=== PATIENT | male | born 1995 | race Two or more races ===

== ENCOUNTER 2018-09-23 14:27 | Emergency (ER) | payer MEDICAID ==
[~2018-09-23] VITALS: Ht 175.3 cm; Wt 84.4 kg
--- NOTE | 2018-09-23 14:38 | NUR ---
ED Nurse Note: Pt came in due to RLQ abd pain, non radiating with nausea. Pt states he was admitted in [facility] [place] 2 days ago and sigend AMA for dx of pancreatitis. Pt is AAO x4,ambulates with non labored breathing. Moaning and restless with pain. Father at the bed side.
[2018-09-23] MEDS ORDERED: OMEPRAZOLE40 M1 ORAL (14:43)
--- NOTE | 2018-09-23 14:50 | NUR ---
ED Nurse Note: Dr Mccloud at the bed side for assessment.
[2018-09-23] MEDS ORDERED: Morphine Sulfate 4mg/ml Inj (IV/IM USE ONLY) IVP ONE (15:00)
[2018-09-23] MEDS ORDERED: Ketorolac 30mg Inj IV ONE (15:00)
--- NOTE | 2018-09-23 15:15 | NUR ---
ED Nurse Note: Blood collected and sent.
[2018-09-23 15:30] LABS: BASOPHILS % (AUTO) 0.8 % (0.0-2.0); EOSINOPHILS % (AUTO) 0.2 % (0.0-3.0); HEMATOCRIT 42.5 % (42.0-52.0); HEMOGLOBIN 14.1 G/DL (14.2-18.0); MEAN CORPUSCULAR VOLUME 89 FL (80-99); MONOCYTES % (AUTO) 8.7 % (1.0-10.0); NEUTROPHILS % (AUTO) 83.4 % (45.0-75.0); PLATELET COUNT 272 K/UL (150-450); RED BLOOD COUNT 4.79 M/UL (4.70-6.10); RED CELL DISTRIBUTION WIDTH 12.5 % (11.6-14.8); WHITE BLOOD COUNT 12.8 K/UL (4.8-10.8)
[2018-09-23 15:52] LABS: ANION GAP 8 mmol/L (5-15); BLOOD UREA NITROGEN 12 mg/dL (7-18); CALCIUM 9.5 MG/DL (8.5-10.1); CARBON DIOXIDE 27 MMOL/L (21-32); CHLORIDE 104 MMOL/L (98-107); CREATININE 0.8 MG/DL (0.55-1.30); POTASSIUM 3.6 MMOL/L (3.5-5.1); SODIUM 139 MMOL/L (136-145)
[2018-09-23 15:57] VITALS: BP 116/64
[2018-09-23 16:03] LABS: ALANINE AMINOTRANSFERASE 148 U/L (12-78); ALBUMIN/GLOBULIN RATIO 0.9 (1.0-2.7); ALKALINE PHOSPHATASE 90 U/L (46-116); ASPARTATE AMINO TRANSFERASE 18 U/L (15-37); BILIRUBIN,DIRECT 0.3 MG/DL (0.0-0.3); BILIRUBIN,TOTAL 1.2 MG/DL (0.2-1.0)
[2018-09-23] MEDS ORDERED: ONDANSETRON ODT4 MG BC (16:37)
[2018-09-23] MEDS ORDERED: RANITIDINE HCL150 MG ORAL (16:37)
[2018-09-23] MEDS ORDERED: ACETAMINOPHEN-1 EAC1 ORAL (16:37)
[2018-09-23 16:58] VITALS: BP 111/64
--- NOTE | 2018-09-23 17:02 | NUR ---
ED Nurse Note: Pt cleared by ER MD for discharge. ACI/prescription was given and explained to pt and verbalized understanding of teachings. All medical devices such as ID band/IV removed. Pt is AAO x4, ambulatory with steady gait and left with all belongings.
--- NOTE | 2018-09-23 17:15 | Emergency Room Report ---
History of Present Illness General Chief Complaint: Abdominal Pain Source: Patient Present Illness HPI 23-year-old male presents ED for evaluation. Patient complaining of abdominal pain and vomiting. Pain is epigastric, throbbing, 7 out of 10, nonradiating. States that he went to another hospital and was told that he has pancreatitis. He was admitted. States that he left AMA 2 days ago because no doctor saw him. States pain is persisting. States he taking omeprazole prescribed by clinic yesterday but states it is not helping. Denies alcohol use. Denies drug use. Denies fevers or chills. No other aggravating relieving factors. Denies any other associated symptoms Allergies: Coded Allergies: No Known Allergies (Unverified , 09/23/18) Patient History Past Medical History: other - pancreatitis Past Surgical History: none Pertinent Family History: none Social History: Denies: smoking, alcohol use, drug use Immunizations: UTD Reviewed Nursing Documentation: PMH: Agreed; PSxH: Agreed Nursing Documentation-PMH Past Medical History: No History, Except For Hx Gastrointestinal Problems: Yes - pancreatitis Review of Systems All Other Systems: negative except mentioned in HPI Physical Exam Vital Signs Date Time Temp Pulse Resp B/P (MAP) Pulse Ox O2 Delivery O2 Flow Rate FiO2 09/23/18 14:38 72 18 Room Air 09/23/18 14:38 98.6 120/76 99 Sp02 EP Interpretation: reviewed, normal General Appearance: no apparent distress, alert, GCS 15, non-toxic Head: normocephalic, atraumatic Eyes: bilateral eye normal inspection, bilateral eye PERRL ENT: hearing grossly normal, normal pharynx, no angioedema, normal voice Neck: full range of motion, supple/symm/no masses Respiratory: chest non-tender, lungs clear, normal breath sounds, speaking full sentences Cardiovascular #1: regular rate, rhythm, no edema Cardiovascular #2: 2+ carotid (R), 2+ carotid (L), 2+ radial (R), 2+ radial (L) , 2+ dorsalis pedis (R), 2+ dorsalis pedis (L) Gastrointestinal: normal bowel sounds, soft, non-distended, no guarding, no rebound, tenderness Rectal: deferred Genitourinary: normal inspection, no CVA tenderness Musculoskeletal: back normal, gait/station normal, normal range of motion, non- tender Neurologic: alert, oriented x3, responsive, motor strength/tone normal, sensory intact, speech normal Psychiatric: judgement/insight normal, memory normal, mood/affect normal, no suicidal/homicidal ideation Reflexes: 3+ bicep (R), 3+ bicep (L), 3+ tricep (R), 3+ tricep (L), 3+ knee (R) , 3+ knee (L) Skin: normal color, no rash, warm/dry, well hydrated Lymphatic: no adenopathy Medical Decision Making Diagnostic Impression: Primary Impression: Abdominal pain Qualified Codes: R10.13 - Epigastric pain ER Course Hospital Course 23-year-old M presents to ED with epigastric pain with nausea. recently diagnosed with pancreatitis differential diagnosis: gastritis, pancreatitis, cholecystits Clinical course Patient placed on stretcher. On classroom monitor. After initial history and physical I ordered labs, IV fluids, toradol and Zantac Labs - no leukocytosis, no electrolyte abnormalities, LFTs normal, lipase within normal limits discussed findings with patient. Lipase within normal limits. Abdomen soft. Tolerating by mouth intake. Patient will be discharged to home. Patient does not have a PMD. We'll provide referrals I feel this is a highly complex case requiring extensive working including EKG/ Rhythm strip, Xray/CT/US, Blood/urine lab work, repeat exams while in ED, and administration of strong opiates/narcotics for pain control, admission to hospital or close patient follow up. Diagnosis - abdominal pain Stable and discharged to home with prescriptions for Zantac, zofran, tylenol # 3. Followup with PMD. Return to ED if symptoms recur or worsen Labs Test 09/23/18 15:05 White Blood Count 12.8 K/UL (4.8-10.8) Red Blood Count 4.79 M/UL (4.70-6.10) Hemoglobin 14.1 G/DL (14.2-18.0) Hematocrit 42.5 % (42.0-52.0) Mean Corpuscular Volume 89 FL (80-99) Mean Corpuscular Hemoglobin 29.3 PG (27.0-31.0) Mean Corpuscular Hemoglobin Concent 33.0 G/DL (32.0-36.0) Red Cell Distribution Width 12.5 % (11.6-14.8) Platelet Count 272 K/UL (150-450) Mean Platelet Volume 6.5 FL (6.5-10.1) Neutrophils (%) (Auto) 83.4 % (45.0-75.0) Lymphocytes (%) (Auto) 7.0 % (20.0-45.0) Monocytes (%) (Auto) 8.7 % (1.0-10.0) Eosinophils (%) (Auto) 0.2 % (0.0-3.0) Basophils (%) (Auto) 0.8 % (0.0-2.0) Sodium Level 139 MMOL/L (136-145) Potassium Level 3.6 MMOL/L (3.5-5.1) Chloride Level 104 MMOL/L (98-107) Carbon Dioxide Level 27 MMOL/L (21-32) Anion Gap 8 mmol/L (5-15) Blood Urea Nitrogen 12 mg/dL (7-18) Creatinine 0.8 MG/DL (0.55-1.30) Estimat Glomerular Filtration Rate > 60 mL/min (>60) Glucose Level 127 MG/DL (74-106) Calcium Level 9.5 MG/DL (8.5-10.1) Total Bilirubin 1.2 MG/DL (0.2-1.0) Direct Bilirubin 0.3 MG/DL (0.0-0.3) Aspartate Amino Transf (AST/SGOT) 18 U/L (15-37) Alanine Aminotransferase (ALT/SGPT) 148 U/L (12-78) Alkaline Phosphatase 90 U/L (46-116) Total Protein 8.5 G/DL (6.4-8.2) Albumin 4.0 G/DL (3.4-5.0) Globulin 4.5 g/dL Albumin/Globulin Ratio 0.9 (1.0-2.7) Lipase 235 U/L (73-393) Last Vital Signs Date Time Temp Pulse Resp B/P (MAP) Pulse Ox O2 Delivery O2 Flow Rate FiO2 09/23/18 16:58 98.0 88 20 111/ 100 Room Air Status: improved Disposition: HOME, SELF-CARE Condition: Stable Scripts Ondansetron Odt* (ZOFRAN ODT*) 4 Mg Tab.rapdis 4 MG BC EVERY 6 HOURS PRN for Nausea & Vomiting, #10 TAB 0 Refills Prov: K[place]akota,Chevy MD 09/23/18 Acetaminophen With Codeine (T#3) (TYLENOL #3 TAB*) Y Tab 1 TAB ORAL Q8H PRN for For Pain for 3 Days, TAB Prov: Chevy Mccloud MD 09/23/18 Ranitidine Hcl* (ZANTAC*) 150 Mg Tablet 150 MG ORAL TWICE A DAY, #30 TAB Prov: Chevy Mccloud MD 09/23/18 [facility]IC[facility] Instructions: Acute Pancreatitis, [id number] Chevy Mccloud MD Sep 23, 2018 17:15
== END 2018-09-23 16:58 | disposition home or self-care (01) ==
LOC: EMR 15:01
DX: R10.13 Epigastric pain (principal); R11.0 Nausea
CPT/HCPCS: 36415; 80053; 82248; 83690; 85025; 96361; 96374; 96375; 99284; J1885; J2270; J2405; S0028

== ENCOUNTER 2018-09-27 12:55 | Inpatient (IN) | payer MEDICAID ==
[~2018-09-27] VITALS: Ht 172.7 cm; Wt 83.9 kg
[~2018-09-27 12:55] MED LIST: ACETAMINOPHEN-1 EAC1 ORAL; OMEPRAZOLE40 M1 ORAL; ONDANSETRON ODT4 MG BC; RANITIDINE HCL150 MG ORAL
[2018-09-27 13:08] VITALS: BP 122/78
[2018-09-27] MEDS ORDERED: Isovue-300 100ml vial INJ PRN (14:00)
[2018-09-27] MEDS ORDERED: Ketorolac 30mg Inj IV ONE (14:00)
[2018-09-27 15:00] VITALS: BP 133/75
[2018-09-27 15:06] LABS: APPEARANCE,URINE CLEAR; BILIRUBIN, URINE NEGATIVE (NEGATIVE); GLUCOSE, URINE (UA) NEGATIVE (NEGATIVE); KETONES,URINE NEGATIVE (NEGATIVE); LEUKOCYTE ESTERASE ,URINE 1+ (NEGATIVE); NITRITE,URINE NEGATIVE (NEGATIVE); PH,URINE 6.5 (4.5-8.0); PROTEIN,URINE 1+ (NEGATIVE); UROBILINOGEN,URINE 1 MG/DL (0.0-1.0)
[2018-09-27 15:06] LABS: ANION GAP 9 mmol/L (5-15); BLOOD UREA NITROGEN 11 mg/dL (7-18); CALCIUM 9.7 MG/DL (8.5-10.1); CARBON DIOXIDE 28 MMOL/L (21-32); CHLORIDE 101 MMOL/L (98-107); CREATININE 0.8 MG/DL (0.55-1.30); POTASSIUM 4.5 MMOL/L (3.5-5.1); SODIUM 138 MMOL/L (136-145)
[2018-09-27 15:08] LABS: COLOR,URINE YELLOW
[2018-09-27 15:10] LABS: ALANINE AMINOTRANSFERASE 60 U/L (12-78); ALBUMIN 3.4 G/DL (3.4-5.0); ALBUMIN/GLOBULIN RATIO 0.7 (1.0-2.7); ALKALINE PHOSPHATASE 129 U/L (46-116); ASPARTATE AMINO TRANSFERASE 17 U/L (15-37); BASOPHILS % (AUTO) 1.2 % (0.0-2.0); BILIRUBIN,TOTAL 0.7 MG/DL (0.2-1.0); EOSINOPHILS % (AUTO) 1.3 % (0.0-3.0); HEMATOCRIT 41.4 % (42.0-52.0); HEMOGLOBIN 13.6 G/DL (14.2-18.0); MEAN CORPUSCULAR VOLUME 89 FL (80-99); NEUTROPHILS % (AUTO) 74.4 % (45.0-75.0); PLATELET COUNT 373 K/UL (150-450); RED BLOOD COUNT 4.65 M/UL (4.70-6.10); RED CELL DISTRIBUTION WIDTH 12.5 % (11.6-14.8); WHITE BLOOD COUNT 10.5 K/UL (4.8-10.8)
[2018-09-27] MEDS ORDERED: Fluconazole 100mg tab ORAL ONE (15:30)
--- NOTE | 2018-09-27 15:33 | Emergency Room Report ---
History of Present Illness General Chief Complaint: Abdominal Pain Source: Patient Present Illness HPI 23-year-old male patient presents the ER complaining of right lower quadrant pain for the past 2 weeks. Patient reports that he was previously seen here at [facility] and had labs done at that time, states that he was provided with medication that he has since completed. Reports prior to that visit he was seen at another ER and told he had a pancreatitis, labs [place] [facility]. Reports diarrhea during this time, denies blood in diarrhea. Denies recent travel. Denies vomiting. Reports has not passed stool since yesterday, reports able to pass flatus. Reports pain symptoms increase in his right lower quadrant whenever he has a bowel movement or urinates. Also reports pain when he coughs. Denies fever, chest pain, shortness of breath. Denies hematuria, penile discharge. Denies rash. Denies testicular pain or swelling. Allergies: Coded Allergies: No Known Allergies (Unverified , 09/23/18) Patient History Past Medical History: see triage record Reviewed Nursing Documentation: PMH: Agreed; PSxH: Agreed Nursing Documentation-PMH Past Medical History: No History, Except For Hx Gastrointestinal Problems: Yes - pancreatitis Review of Systems All Other Systems: negative except mentioned in HPI Physical Exam Vital Signs Date Time Temp Pulse Resp B/P (MAP) Pulse Ox O2 Delivery O2 Flow Rate FiO2 09/27/18 13:08 98.4 90 16 122/78 97 Room Air Sp02 EP Interpretation: reviewed, normal General Appearance: well appearing, no apparent distress, alert, GCS 15, non- toxic Head: normocephalic, atraumatic Eyes: bilateral eye normal inspection, bilateral eye PERRL ENT: hearing grossly normal, normal pharynx, no angioedema, normal voice, uvula midline, moist mucus membranes Neck: full range of motion Respiratory: lungs clear, normal breath sounds, no rhonchi, no respiratory distress, no accessory muscle use, no wheezing, speaking full sentences Cardiovascular #1: regular rate, rhythm, no edema Gastrointestinal: soft, no mass, non-distended, no guarding, no rebound, tenderness - Right lower quadrant, other - no hernia, positive right heel strike Genitourinary: no CVA tenderness Musculoskeletal: back normal, digits/nails normal, gait/station normal, normal range of motion, non-tender Neurologic: alert, oriented x3, responsive, motor strength/tone normal, sensory intact Psychiatric: mood/affect normal Skin: no rash Medical Decision Making PA Attestation Dr. Schneider is my supervising Physician whom patient management has been discussed with. Diagnostic Impression: Primary Impression: Appendicitis Additional Impressions: Urinary tract infection Yeast infection ER Course Pt. presents to the ED c/o abdominal pain. Ddx considered but are not limited to UTI, pancreatitis, appendicitis, constipation, pancreatitis, hernia. Begin abdominal pain workup. Provided patient with pain medication. Vital signs: are WNL, pt. is afebrile ORDERS: CBC, CMP, Lipase, UA, CT abdomen pelvis, Zofran, Pepcid and medication. ER COURSE: Provided with pain medicaiton. CBC and CMP unremarkable, no elevation in WBCs or LFTs Lipase WNL, low suspicion for appendicitis UA moderate bacteria with no epithelial cells, likely infection, will treat with antibiotics. Also yeast noted, will provide patient with fluconazole in the ER. Discuss results with patient CT abdomen and pelvis shows acute appendicitis with evidence of focal rupture. Provide patient with Zosyn. Will admit patient for acute appendicitis. Possible pancreatitis noted however lipase within normal limits, low suspicion for acute pancreatitis. Patient reports relief of pain symptoms with medication. Discussed patient care with Dr. Shipman, patient will be admitted for acute appendicitis. Patient seen and evaluated by general surgeon Dr. Trinidad who was kind enough to consult on this case. Patient to be admitted to Dr. Lovell. - Please note that this Emergency Department Report was dictated using [employer] critical care technology software, occasionally this can lead to erroneous entry secondary to interpretation by the dictation equipment. Labs Test 09/27/18 14:40 09/27/18 14:45 Urine Color Yellow Urine Appearance Clear Urine pH 6.5 (4.5-8.0) Urine Specific [place] 1.015 (1.005-1.035) Urine Protein 1+ (NEGATIVE) Urine Glucose (UA) Negative (NEGATIVE) Urine Ketones Negative (NEGATIVE) Urine Blood 2+ (NEGATIVE) Urine Nitrite Negative (NEGATIVE) Urine Bilirubin Negative (NEGATIVE) Urine Urobilinogen 1 MG/DL (0.0-1.0) Urine Leukocyte Esterase 1+ (NEGATIVE) Urine RBC 5-10 /HPF (0 - 0) Urine WBC 2-4 /HPF (0 - 0) Urine Squamous Epithelial Cells None /LPF (NONE/OCC) Urine Bacteria Moderate /HPF (NONE) Urine Yeast Few /HPF (NONE) White Blood Count 10.5 K/UL (4.8-10.8) Red Blood Count 4.65 M/UL (4.70-6.10) Hemoglobin 13.6 G/DL (14.2-18.0) Hematocrit 41.4 % (42.0-52.0) Mean Corpuscular Volume 89 FL (80-99) Mean Corpuscular Hemoglobin 29.3 PG (27.0-31.0) Mean Corpuscular Hemoglobin Concent 32.9 G/DL (32.0-36.0) Red Cell Distribution Width 12.5 % (11.6-14.8) Platelet Count 373 K/UL (150-450) Mean Platelet Volume 5.7 FL (6.5-10.1) Neutrophils (%) (Auto) 74.4 % (45.0-75.0) Lymphocytes (%) (Auto) 12.0 % (20.0-45.0) Monocytes (%) (Auto) 11.0 % (1.0-10.0) Eosinophils (%) (Auto) 1.3 % (0.0-3.0) Basophils (%) (Auto) 1.2 % (0.0-2.0) Sodium Level 138 MMOL/L (136-145) Potassium Level 4.5 MMOL/L (3.5-5.1) Chloride Level 101 MMOL/L (98-107) Carbon Dioxide Level 28 MMOL/L (21-32) Anion Gap 9 mmol/L (5-15) Blood Urea Nitrogen 11 mg/dL (7-18) Creatinine 0.8 MG/DL (0.55-1.30) Estimat Glomerular Filtration Rate > 60 mL/min (>60) Glucose Level 100 MG/DL (74-106) Calcium Level 9.7 MG/DL (8.5-10.1) Total Bilirubin 0.7 MG/DL (0.2-1.0) Aspartate Amino Transf (AST/SGOT) 17 U/L (15-37) Alanine Aminotransferase (ALT/SGPT) 60 U/L (12-78) Alkaline Phosphatase 129 U/L (46-116) Total Protein 8.5 G/DL (6.4-8.2) Albumin 3.4 G/DL (3.4-5.0) Globulin 5.1 g/dL Albumin/Globulin Ratio 0.7 (1.0-2.7) Lipase 253 U/L (73-393) CT/MRI/US Diagnostic Results CT/MRI/US Diagnostic Results : Imaging Test Ordered: CT abdomen pelvis Impression Acute appendicitis with evidence of focal rupture. Moderate inflammation and phlegmon noted. No definite abscess at this time. Associated terminal ileum stasis and fecalization. Query possibility of focal mild acute pancreatitis in the anterior body of the pancreas. Correlate with lipase. Last Vital Signs Date Time Temp Pulse Resp B/P (MAP) Pulse Ox O2 Delivery O2 Flow Rate FiO2 09/27/18 14:15 90 16 Room Air 09/27/18 13:08 98.4 122/78 97 Disposition: ADMITTED INPATIENT Condition: Serious Referrals: NON PHYSICIAN (PCP) Patient Instructions: Abdominal Pain, Adult, Genital Yeast Infection, Male, Urinary Tract Infection, [id number] Zak Martinez Sep 27, 2018 15:33
--- NOTE | 2018-09-27 16:38 | Diagnostic Imaging Report ---
Indication: Abdominal pain Technique: Continuous helical transaxial imaging of the abdomen and pelvis was obtained from the lung bases to the pubic symphysis during intravenous contrast administration. Coronal 2-D reformats were also obtained. Study obtained in a Siemens sensation [address] Automatic Exposure Control was utilized. Total Dose length Product (DLP): 857.[address] Dose Index Volume (CTDIvol): 15.47 mGy Comparison: None Findings: There is a moderately severe inflammation in the right lower quadrant associated with a dilated appendix measuring about 12 mm. Single focus of air noted adjacent to the appendix indicative of focal rupture. No abscess identified. Mild dilatation of the terminal ileum filled with feces noted. Kidneys are unremarkable. The liver, spleen and gallbladder appear unremarkable. In the anterior body of the pancreas there is an area of low attenuation (for example images 22-26 series 3). Query mild, focal pancreatitis. Moderate stool in the rectal vault noted. IMPRESSION: Acute appendicitis with evidence of focal rupture. Moderate inflammation and phlegmon noted. No definite abscess at this time. Associated terminal ileum stasis and fecalization. Query possibility of focal mild acute pancreatitis in the anterior body of the pancreas. Correlate with lipase. The CT scanner at [facility] is accredited by the [employer] and the scans are performed using dose optimization techniques as appropriate to a performed exam including Automatic Exposure control.
[2018-09-27 17:00] VITALS: BP 129/88
[2018-09-27] MEDS ORDERED: cefTRIAXone 1 GM in NS 55 ML IVPB ONE (17:00)
[2018-09-27] MEDS ORDERED: Piperacillin/Tazobactam 3.375 GM in NS 110 ML IVPB ONE (17:00)
[2018-09-27] MEDS ORDERED: Bupivacaine w/Epi 0.5% 30ml Vial INJ ONE (18:46)
[2018-09-27] MEDS ORDERED: Bacitracin 50000 Units Vial ONE (18:46)
[2018-09-27 19:00] VITALS: BP 130/77
--- NOTE | 2018-09-27 19:13 | Pre-Procedure Note/Attestation ---
Pre-Procedure Note/Attestation Complete Prior to Procedure Planned Procedure: not applicable Procedure Narrative: laparoscopic appendectomy possible open appendectomy Indications for Procedure Pre-Operative Diagnosis: Acute appendicitis Attestation I attest that I discussed the nature of the procedure; its benefits; risks and complications; and alternatives (and the risks and benefits of such alternatives ), prior to the procedure, with the patient (or the patient's legal printing sales representative). I attest that, if there was a reasonable possibility of needing a blood transfusion, the patient (or the patient's legal printing sales representative) was given the [facility] standardized written summary, pursuant to the Michele Rosendo Blood Safety Act ([place] Health and Safety Code # 1645, as amended). I attest that I re-evaluated the patient just prior to the surgery and that there has been no change in the patient's H&P, except as documented below: Gurmeet Trinidad MD Sep 27, 2018 19:13
[2018-09-27] MEDS ORDERED: Hydromorphone 0.5mg/0.5ml inj IVP PRN (19:45)
[2018-09-27] MEDS ORDERED: Metoclopramide 10mg/2ml Inj IVP PRN (19:45)
[2018-09-27] MEDS ORDERED: Acetaminophen 650 MG SUPP RECTAL PRN (19:45)
--- NOTE | 2018-09-27 19:45 | Pre-op HX & Phy Repo 2 SIG ---
DATE OF ADMISSION: 09/27/2018 REASON FOR CONSULTATION: Abdominal pain. REQUESTING PHYSICIAN: Dr. Shipman in the emergency room. HISTORY OF PRESENT ILLNESS: This is a 23-year-old, male, who presented to emergency room complaining of abdominal pain for about a week. He stated that the pain is located at the left lower quadrant. No radiation. Before, he had two episodes of vomiting, but now he denies any nausea or vomiting. He had a loose bowel movement yesterday. He denies any fever, cough, dysuria, or frequency. He stated that a week ago, he was admitted in another hospital with diagnosis of pancreatitis, but after 2 days as he was not getting any treatment, he signed AMA. PAST MEDICAL HISTORY: He denies allergies, asthma, diabetes, hypertension, cardiac, and renal diseases. PAST SURGICAL HISTORY: None. MEDICATIONS: Currently, he is on Zantac and omeprazole as well as Tylenol No. 3. SOCIAL HISTORY: The patient is a 23-year-old male, who is single, no children. 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 REVIEW OF SYSTEMS: Noncontributory. PHYSICAL EXAMINATION: GENERAL: The patient appeared to be a well-developed and well-nourished 23-year-old male, lying on the gurney, complaining of abdominal pain. HEENT: Head is normocephalic and atraumatic. Eyes, pupils are equal, round, and reactive to light. Mouth is clear. NECK: There is no palpable thyromegaly or adenopathy. CHEST: Clear to auscultation and percussion. HEART: There is no gallop or murmur. S1 and S2 are within normal limits. ABDOMEN: Soft and flat with tenderness at right lower quadrant with guarding, but no rebound tenderness. Bowel sounds are present. GENITAL: Normal. EXTREMITIES: Within normal limits. LABORATORY DATA: CBC has shown a WBC of 10,500 with normal differential. Chemistry is within normal limits. UA is within normal limits except that it shows 5 to 10 red blood cells and 2 to 4 white blood cells. A CAT scan of the abdomen has been interpreted as acute appendicitis with evidence of the focal rupture. It has shown an air bubble next to the appendix with severe inflammatory changes. ASSESSMENT: Acute appendicitis. PLAN: After rehydration, the patient will undergo a laparoscopy appendectomy, possible open appendectomy. The risks and benefits have been explained to him. He understood and granted consent. Gurmeet Trinidad M.D. DR: OSIEL JOB#: [id number] CC:
[2018-09-27 20:00] VITALS: BP 121/68
[2018-09-27] MEDS: D5 1/2NS w/KCl 20mEq 1,000 ML IV SCH (21:57)
[2018-09-28] VITALS (10 sets, daily range): BP systolic 104–134; BP diastolic 55–75
[2018-09-28] MEDS: HYDROmorphone 1mg/ml Carpuject IVP PRN ×4 (00:51→21:30)
[2018-09-28] MEDS ORDERED: Bupivacaine 0.25% Inj 30ml INJ ONE (06:54)
[2018-09-28] MEDS ORDERED: Bacitracin 50000 Units Vial ONE (06:54)
[2018-09-28] MEDS ORDERED: Bupivacaine w/Epi 0.5% 30ml Vial INJ ONE (06:54)
[2018-09-28] MEDS: D5 1/2NS w/KCl 20mEq 1,000 ML IV SCH ×2 (07:00→13:21)
[2018-09-28] MEDS ORDERED: Zemuron 50mg/5ml Inj IV ONE (07:03)
[2018-09-28] MEDS ORDERED: Propofol 200mg/20ml IV ONE (07:06)
[2018-09-28] MEDS ORDERED: Lidocaine 1% MPF 10mg/ml 5ml ONE (07:06)
[2018-09-28] MEDS ORDERED: fentaNYL 100 mcg/2 mL IV ONE (07:06)
[2018-09-28] MEDS ORDERED: Ketorolac 30mg Inj ONE (08:20)
[2018-09-28] MEDS ORDERED: Neostigmine 1mg/ml 10ml Inj ONE (08:20)
[2018-09-28] MEDS ORDERED: Glycopyrrolate 0.2mg/ml 1ml Vial ONE (08:20)
[2018-09-28] MEDS ORDERED: Morphine Sulfate 10mg/ml Inj ONE (08:23)
[2018-09-28] MEDS ORDERED: D5 1/2NS w/KCl 20mEq 1,000 ML IV SCH (08:29)
--- NOTE | 2018-09-28 08:29 | Brief Operative Note ---
Immediate Post Operative Note Operative Note Pre-op Diagnosis: Acute appendicitis Procedure: Laparoscopic Appendectomy and partial omentectomy Post-op Diagnosis: acute perforated appendicitis with abscess Findings: consistent w/pre-op dx studies Surgeon: MD David Brand Manager: none Anesthesiologist: Dr Pedraza Anesthesia: general Specimen: yes Complications: none Condition: stable Fluids: per anesthesialogist Estimated Blood Loss: volume - 20 ml Drains: none Implant(s) used?: No Gurmeet Trinidad MD Sep 28, 2018 08:29
[2018-09-28] MEDS ORDERED: HYDROmorphone 1mg/ml Carpuject IVP PRN (08:30)
[2018-09-28] MEDS ORDERED: Metoclopramide 10mg/2ml Inj IVP PRN (08:30)
[2018-09-28] MEDS ORDERED: Hydromorphone 0.5mg/0.5ml inj IVP PRN (08:30)
[2018-09-28] MEDS ORDERED: Acetaminophen 650 MG SUPP RECTAL PRN (08:30)
--- NOTE | 2018-09-28 08:39 | Immediate Post-Op Evaluation ---
Immediate Post-Op Evalulation Immediate Post-Op Evalulation Procedure: lap chan Date of Evaluation: Sep 28, 2018 Time of Evaluation: 08:39 Nausea: No Vomiting: No America Pedraza MD Sep 28, 2018 08:39
--- NOTE | 2018-09-28 08:39 | Anethesia Preoperative Eval ---
Anesthesia Pre-op PMH/ROS General Date of Evaluation: Sep 28, 2018 Time of Evaluation: 07:00 ASA Score: ASA 1 Mallampati Score Class I : Soft palate, uvula, fauces, pillars visible Class II: Soft palate, uvula, fauces visible Class III: Soft palate, base of uvula visible Class IV: Only hard plate visible Mallampati Classification: Class I Allergies: Coded Allergies: No Known Allergies (Unverified , 09/23/18) Patient NPO?: Yes NPO Date: Sep 27, 2018 NPO Time: 1900 Anesthesia Pre-op Phys. Exam Physician Exam Last Vital Signs Date Time Temp Pulse Resp B/P (MAP) Pulse Ox O2 Delivery O2 Flow Rate FiO2 09/28/18 00:00 97.9 69 16 120/69 (86) 97 09/27/18 21:53 Room Air Airway Exam Mallampati Score: Class I Anesthesia Pre-op A/P Labs Hematology Test 09/27/18 14:45 White Blood Count 10.5 K/UL (4.8-10.8) Red Blood Count 4.65 M/UL (4.70-6.10) L Hemoglobin 13.6 G/DL (14.2-18.0) L Hematocrit 41.4 % (42.0-52.0) L Mean Corpuscular Volume 89 FL (80-99) Mean Corpuscular Hemoglobin 29.3 PG (27.0-31.0) Mean Corpuscular Hemoglobin Concent 32.9 G/DL (32.0-36.0) Red Cell Distribution Width 12.5 % (11.6-14.8) Platelet Count 373 K/UL (150-450) Mean Platelet Volume 5.7 FL (6.5-10.1) L Neutrophils (%) (Auto) 74.4 % (45.0-75.0) Lymphocytes (%) (Auto) 12.0 % (20.0-45.0) L Monocytes (%) (Auto) 11.0 % (1.0-10.0) H Eosinophils (%) (Auto) 1.3 % (0.0-3.0) Basophils (%) (Auto) 1.2 % (0.0-2.0) Chemistry Test 09/27/18 14:45 Sodium Level 138 MMOL/L (136-145) Potassium Level 4.5 MMOL/L (3.5-5.1) Chloride Level 101 MMOL/L (98-107) Carbon Dioxide Level 28 MMOL/L (21-32) Anion Gap 9 mmol/L (5-15) Blood Urea Nitrogen 11 mg/dL (7-18) Creatinine 0.8 MG/DL (0.55-1.30) Estimat Glomerular Filtration Rate > 60 mL/min (>60) Glucose Level 100 MG/DL (74-106) Calcium Level 9.7 MG/DL (8.5-10.1) Total Bilirubin 0.7 MG/DL (0.2-1.0) Aspartate Amino Transf (AST/SGOT) 17 U/L (15-37) Alanine Aminotransferase (ALT/SGPT) 60 U/L (12-78) Alkaline Phosphatase 129 U/L (46-116) H Total Protein 8.5 G/DL (6.4-8.2) H Albumin 3.4 G/DL (3.4-5.0) Globulin 5.1 g/dL Albumin/Globulin Ratio 0.7 (1.0-2.7) L Lipase 253 U/L (73-393) America Pedraza MD Sep 28, 2018 08:39
[2018-09-28] MEDS: Pantoprazole Inj IVP SCH (09:00)
[2018-09-28 09:02] LABS: EOSINOPHILS % (AUTO) 2.1 % (0.0-3.0); HEMATOCRIT 36.6 % (42.0-52.0); HEMOGLOBIN 12.1 G/DL (14.2-18.0); LYMPHOCYTES % (AUTO) 25.9 % (20.0-45.0); MEAN CORPUSCULAR VOLUME 90 FL (80-99); MONOCYTES % (AUTO) 8.2 % (1.0-10.0); NEUTROPHILS % (AUTO) 62.8 % (45.0-75.0); PLATELET COUNT 310 K/UL (150-450); RED BLOOD COUNT 4.08 M/UL (4.70-6.10); RED CELL DISTRIBUTION WIDTH 12.7 % (11.6-14.8); WHITE BLOOD COUNT 8.5 K/UL (4.8-10.8)
[2018-09-28] MEDS: fentaNYL 100 mcg/2 mL IV PRN ×5 (09:03→09:45)
[2018-09-28 09:10] LABS: ANION GAP 6 mmol/L (5-15); BLOOD UREA NITROGEN 10 mg/dL (7-18); CALCIUM 8.8 MG/DL (8.5-10.1); CARBON DIOXIDE 29 MMOL/L (21-32); CHLORIDE 105 MMOL/L (98-107); CREATININE 0.9 MG/DL (0.55-1.30); POTASSIUM 4.1 MMOL/L (3.5-5.1); SODIUM 140 MMOL/L (136-145)
[2018-09-28] MEDS ORDERED: DiphenhydrAMINE 50mg/ml Inj IVP ONE (09:15)
--- NOTE | 2018-09-28 10:15 | Operative Note - Dictated ---
DATE OF OPERATION: 09/28/2018 PREOPERATIVE DIAGNOSIS: Acute appendicitis. POSTOPERATIVE DIAGNOSIS: Acute perforated appendicitis with periappendiceal abscess. OPERATION: 1. Laparoscopy appendectomy. 2. Partial omentectomy. COMPLICATION: None. SURGEON: Gurmeet Trinidad M.D. STARCHER AND TENTER RANGE FEEDER: None. ANESTHESIA: General with endotracheal tube. ANESTHESIOLOGIST: Dr. Pedraza. INDICATION: This is a 23-year-old male, who presented with one-week history of abdominal pain. He stated the pain was located at right lower quadrant. He claims that initially he vomited twice, but at the time of presentation he denied any vomiting or even nausea. He denied any fever. Physical examination showed tenderness at right lower quadrant. CBC showed a WBC of 10,000 with normal differential, but the CAT scan was interpreted as acute appendicitis with severe inflammatory changes at the right lower quadrant. DESCRIPTION OF PROCEDURE: The patient was placed supine on the operating table and after general anesthesia with endotracheal tube, the abdomen was properly prepped and draped. Initially a small incision was made above the umbilicus through which a Veress needle was introduced into the intraperitoneal cavity. This cavity was insufflated up to 15 mmHg and the Veress needle was removed and a 5 mm trocar was placed in the intraperitoneal cavity through the incision above the umbilicus. Laparoscope and camera was introduced into the intraperitoneal cavity through the trocar above the umbilicus. Under direct vision, a 5 mm trocar was placed at the suprapubic area and a 12 mm trocar was placed at the left lower quadrant. Initially, a rapid exploration was performed, which showed the diaphragms to be normal. The part of the stomach to the spleen was normal. The liver and gallbladder was normal. The patient had adhesion of the omentum to the anterior abdominal wall at the right lower quadrant and there was inflammatory changes in that area. The dissection at the right lower quadrant cavity was performed and gradually it was noticed that the appendix was completely covered with large amount of omentum. Gradually the omentum was released and the abscess was drained. Finally, the appendix was completely dissected and isolated. The appendix and mesoappendix was isolated and then it was ligated and transected with the help of the SAMANTHA stapler. The patient had perforation at the distal part of the appendix. The appendix was removed from the intraperitoneal cavity through the incision at the left lower quadrant with the help of Endopouch. After removal of the appendix, the exploration was performed, which showed that the omentum at the area of the right lower quadrant especially at the abscess area was severely inflamed and infected. So, decision was made for partial omentectomy. The omentum in this area was ligated and transected with the SAMANTHA stapler and then this part of the omentum was removed from the intraperitoneal cavity with the help of the Endo pouch through the incision at the left lower quadrant of the abdomen. After removal of the omentum, the intraperitoneal cavity was thoroughly irrigated with antibiotic solution, especially the right paracolic gutter and the pelvis. Another exploration was performed. There was no complication or bleeding. The trocars were removed under direct vision. The incisions were infiltrated with total of 30 mL of Marcaine 0.25% and then the fascia at the left lower quadrant was approximated with [id number] suture of #0 Vicryl and the subcutaneous tissue was approximated with 4-0 chromic and the skin incisions were approximated with running subcuticular suture of 4-0 chromic. The patient tolerated the procedure very well and was transferred to recovery room in stable condition and extubated. The sponge and needle count correct. Estimated blood loss 20 mL. Condition of the patient at the end of procedure is stable. Gurmeet Trinidad M.D. DR: MICHELLE JOB#: [id number] CC:
--- NOTE | 2018-09-28 11:36 | 48 Hour Post Anesthesia Eval ---
Post Anesthesia Evaluation Procedure: lap appy Date of Evaluation: Sep 28, 2018 Time of Evaluation: 11:36 Nausea: No Vomiting: No America Pedraza MD Sep 28, 2018 11:36
--- NOTE | 2018-09-28 12:19 | History and Physical ---
History of Present Illness General Date patient seen: Sep 28, 2018 Time patient seen: 11:30 Reason for Hospitalization: Abdominal Pain Present Illness HPI 23 year old man without significant medical history who has been having intermittent lower abdominal pain since July, was hospitalized at the end of August for suspected acute pancreatitis but he signed out AMA after 2 days. He presented to the ED with persistent lower abdominal pain with nausea. In ED he had CT A/P showing ruptures appendicitis with phlegmon formation. He was referred for admission and underwent appendectomy earlier today. He was seen in the post-op period, having moderate post-surgical/incisional pain. Denies any fever, chills. PMHx: None Social: Uses cannabis Family: Mother s/p cholecystectomy Allergies: Coded Allergies: No Known Allergies (Unverified , 09/23/18) Medication History Scheduled Omeprazole (Omeprazole), 40 MG ORAL DAILY, (Reported) Ranitidine Hcl* (Zantac*), 150 MG ORAL TWICE A DAY Scheduled PRN Acetaminophen With Codeine (T#3) (Tylenol #3 Tab*), 1 TAB ORAL Q8H PRN for For Pain Ondansetron Odt* (Zofran Odt*), 4 MG BC EVERY 6 HOURS PRN for Nausea & Vomiting Patient History Healthcare decision maker N Resuscitation status Full Code Advanced Directive on File Review of Systems Constitutional: Denies: chills, sweats Eye: Denies: eye pain, blurred vision ENT: Denies: ear pain, ear discharge Respiratory: Denies: cough, orthopnea Cardiovascular: Denies: chest pain, edema Gastrointestinal: Reports: abdominal pain; Denies: constipation Genitourinary: Denies: dysuria Musculoskeletal: Denies: back pain Skin: Denies: rash Neurological: Denies: headache Endocrine: Denies: excessive sweating Hematologic/Lymphatic: Denies: anemia, blood clots Physical Exam General Appearance: no apparent distress, alert HEENT: normocephalic, atraumatic Neck: non-tender, normal alignment Respiratory/Chest: chest wall non-tender, lungs clear, normal breath sounds Cardiovascular/Chest: normal peripheral pulses, normal rate Abdomen: normal bowel sounds, non tender, soft Extremities: normal range of motion, non-tender Neurologic: pipe stem aligner II-XII grossly normal, no motor/sensory deficits Last 24 Hour Vital Signs Date Time Temp Pulse Resp B/P (MAP) Pulse Ox O2 Delivery O2 Flow Rate FiO2 09/28/18 10:15 98.0 71 22 109/58 99 Nasal Cannula 3 09/28/18 10:00 98.0 70 22 111/60 99 Nasal Cannula 3 09/28/18 09:45 60 22 116/69 100 Nasal Cannula 3 09/28/18 09:24 70 22 121/75 100 Nasal Cannula 3 09/28/18 09:14 68 22 134/71 100 Simple Mask 8 09/28/18 09:03 68 22 134/71 100 Simple Mask 8 09/28/18 08:50 75 22 104/72 100 Simple Mask 8 09/28/18 08:45 64 22 107/60 100 Simple Mask 8 09/28/18 08:40 97.5 64 22 111/55 100 Simple Mask 8 09/28/18 00:00 97.9 69 16 120/69 (86) 97 09/27/18 21:53 Room Air 09/27/18 20:00 97.8 74 17 121/68 (85) 97 09/27/18 19:40 98.6 82 18 130/77 98 Room Air 09/27/18 19:00 98.6 82 18 130/77 98 Room Air 09/27/18 17:00 98.0 87 20 129/88 100 Room Air 09/27/18 15:33 98.5 09/27/18 15:00 98.7 76 17 133/75 100 Room Air 09/27/18 14:15 90 16 Room Air 09/27/18 13:08 98.4 90 16 122/78 97 Room Air 09/27/18 13:08 98.4 16 122/78 97 Room Air Intake and Output 09/27/18 09/28/18 19:00 07:00 Intake Total 1110 ml Balance 1110 ml Intake IV Total 1110 ml # Voids 2 2 Laboratory Tests Test 09/27/18 14:40 09/27/18 14:45 09/28/18 08:55 Urine Color Yellow Urine Appearance Clear Urine pH 6.5 (4.5-8.0) Urine Specific [place] 1.015 (1.005-1.035) Urine Protein 1+ (NEGATIVE) H Urine Glucose (UA) Negative (NEGATIVE) Urine Ketones Negative (NEGATIVE) Urine Blood 2+ (NEGATIVE) H Urine Nitrite Negative (NEGATIVE) Urine Bilirubin Negative (NEGATIVE) Urine Urobilinogen 1 MG/DL (0.0-1.0) H Urine Leukocyte Esterase 1+ (NEGATIVE) H Urine RBC 5-10 /HPF (0 - 0) H Urine WBC 2-4 /HPF (0 - 0) Urine Squamous Epithelial Cells None /LPF (NONE/OCC) Urine Bacteria Moderate /HPF (NONE) H Urine Yeast Few /HPF (NONE) H White Blood Count 10.5 K/UL (4.8-10.8) 8.5 K/UL (4.8-10.8) Red Blood Count 4.65 M/UL (4.70-6.10) L 4.08 M/UL (4.70-6.10) L Hemoglobin 13.6 G/DL (14.2-18.0) L 12.1 G/DL (14.2-18.0) L Hematocrit 41.4 % (42.0-52.0) L 36.6 % (42.0-52.0) L Mean Corpuscular Volume 89 FL (80-99) 90 FL (80-99) Mean Corpuscular Hemoglobin 29.3 PG (27.0-31.0) 29.5 PG (27.0-31.0) Mean Corpuscular Hemoglobin Concent 32.9 G/DL (32.0-36.0) 33.0 G/DL (32.0-36.0) Red Cell Distribution Width 12.5 % (11.6-14.8) 12.7 % (11.6-14.8) Platelet Count 373 K/UL (150-450) 310 K/UL (150-450) Mean Platelet Volume 5.7 FL (6.5-10.1) L 5.5 FL (6.5-10.1) L Neutrophils (%) (Auto) 74.4 % (45.0-75.0) 62.8 % (45.0-75.0) Lymphocytes (%) (Auto) 12.0 % (20.0-45.0) L 25.9 % (20.0-45.0) Monocytes (%) (Auto) 11.0 % (1.0-10.0) H 8.2 % (1.0-10.0) Eosinophils (%) (Auto) 1.3 % (0.0-3.0) 2.1 % (0.0-3.0) Basophils (%) (Auto) 1.2 % (0.0-2.0) 1.0 % (0.0-2.0) Sodium Level 138 MMOL/L (136-145) 140 MMOL/L (136-145) Potassium Level 4.5 MMOL/L (3.5-5.1) 4.1 MMOL/L (3.5-5.1) Chloride Level 101 MMOL/L (98-107) 105 MMOL/L (98-107) Carbon Dioxide Level 28 MMOL/L (21-32) 29 MMOL/L (21-32) Anion Gap 9 mmol/L (5-15) 6 mmol/L (5-15) Blood Urea Nitrogen 11 mg/dL (7-18) 10 mg/dL (7-18) Creatinine 0.8 MG/DL (0.55-1.30) 0.9 MG/DL (0.55-1.30) Estimat Glomerular Filtration Rate > 60 mL/min (>60) > 60 mL/min (>60) Glucose Level 100 MG/DL (74-106) 110 MG/DL (74-106) H Calcium Level 9.7 MG/DL (8.5-10.1) 8.8 MG/DL (8.5-10.1) Total Bilirubin 0.7 MG/DL (0.2-1.0) Aspartate Amino Transf (AST/SGOT) 17 U/L (15-37) Alanine Aminotransferase (ALT/SGPT) 60 U/L (12-78) Alkaline Phosphatase 129 U/L (46-116) H Total Protein 8.5 G/DL (6.4-8.2) H Albumin 3.4 G/DL (3.4-5.0) Globulin 5.1 g/dL Albumin/Globulin Ratio 0.7 (1.0-2.7) L Lipase 253 U/L (73-393) Microbiology Date/Time Source Procedure Growth Status 09/27/18 14:40 Urine,Clean Catch Urine Culture - Preliminary NO GROWTH Resulted Height (Feet): 5 Height (Inches): 8.00 Weight (Pounds): 185 Medications Current Medications Medications (Trade) Dose Ordered Sig/Hesham Route PRN Reason Start Time Stop Time Status Last Admin Dose Admin Acetaminophen (Tylenol) 650 mg Q4H PRN RECTAL FEVER (temp>100.5F) 09/27/18 19:45 10/27/18 19:44 Dextrose/ Electrolytes 1,000 ml @ 100 mls/hr Q10H IV 09/27/18 21:00 10/27/18 20:59 09/27/18 21:57 Fentanyl Citrate (Sublimaze 100 mcg/2 mL) 25 mcg Q10M PRN IV Moderate Pain (Pain Scale 4-6) 09/28/18 08:45 09/28/18 14:00 09/28/18 09:45 Hydromorphone HCl (Dilaudid) 0.5 mg Q3H PRN IVP Pain Score 1-3 09/27/18 19:45 10/04/18 19:44 Hydromorphone HCl (Dilaudid) 1 mg Q3H PRN IVP pain score 4-6 09/27/18 19:45 10/04/18 19:44 09/28/18 00:51 Iopamidol (Isovue-300 100ml) 100 ml NOW PRN INJ Radiology Procedure 09/27/18 14:00 09/29/18 13:59 Levofloxacin 150 ml @ 150 mls/hr Q24H IVPB 09/27/18 21:00 10/04/18 20:59 09/27/18 21:57 Metoclopramide HCl (Reglan) 10 mg Q6H PRN IVP Nausea & Vomiting 09/27/18 19:45 10/27/18 19:44 Ondansetron HCl (Zofran) 4 mg Q1H PRN IVP Nausea & Vomiting 09/28/18 08:45 09/28/18 14:00 Ondansetron HCl (Zofran) 4 mg Q6H PRN IVP Nausea & Vomiting 09/27/18 19:45 10/27/18 19:44 Pantoprazole (Protonix) 40 mg DAILY IVP 09/28/18 09:00 10/28/18 08:59 Piperacillin Sod/ Tazobactam Sod 4.5 gm/Dextrose 110 ml @ 27.5 mls/hr EVERY 8 HOURS IVPB 09/28/18 22:00 10/03/18 21:59 Assessment/Plan Assessment/Plan #Acute ruptured appendicitis, s/p laparoscopy appendectomy on 09/28/17 -admit to medical service -continue supportive care with anti-emetics,analgesics and IV hydration -continue IV antibiotic with Levaquin and Zosyn -check labs in AM -General surgery following Burton Gannon MD Sep 28, 2018 12:19
[2018-09-28] MEDS ORDERED: Tubing IV Secondary IV ONE (14:25)
[2018-09-28] MEDS: Piperacillin/Tazobactam 4.5 GM in D5W 110 ML IVPB SCH (22:18)
[2018-09-29 00:28] VITALS: BP 113/69
[2018-09-29] MEDS: D5 1/2NS w/KCl 20mEq 1,000 ML IV SCH ×3 (03:08→21:17)
[2018-09-29] MEDS: Piperacillin/Tazobactam 4.5 GM in D5W 110 ML IVPB SCH ×3 (06:00→21:25)
[2018-09-29 07:09] LABS: BASOPHILS % (AUTO) 0.6 % (0.0-2.0); EOSINOPHILS % (AUTO) 0.5 % (0.0-3.0); HEMOGLOBIN 11.6 G/DL (14.2-18.0); LYMPHOCYTES % (AUTO) 12.8 % (20.0-45.0); MEAN CORPUSCULAR VOLUME 89 FL (80-99); MONOCYTES % (AUTO) 8.2 % (1.0-10.0); NEUTROPHILS % (AUTO) 77.9 % (45.0-75.0); PLATELET COUNT 337 K/UL (150-450); RED BLOOD COUNT 3.91 M/UL (4.70-6.10); WHITE BLOOD COUNT 10.9 K/UL (4.8-10.8)
[2018-09-29 07:17] LABS: ANION GAP 6 mmol/L (5-15); BLOOD UREA NITROGEN 6 mg/dL (7-18); CALCIUM 9.1 MG/DL (8.5-10.1); CARBON DIOXIDE 29 MMOL/L (21-32); CHLORIDE 101 MMOL/L (98-107); CREATININE 0.8 MG/DL (0.55-1.30); POTASSIUM 3.9 MMOL/L (3.5-5.1); SODIUM 136 MMOL/L (136-145)
[2018-09-29 08:04] VITALS: BP 109/66
--- NOTE | 2018-09-29 08:42 | General Surgery Progress Note ---
General Surgery-Progress Note Subjective Procedure Performed Laparoscopic Appendectomy and partial omentectomy Objective Last 24 Hour Vital Signs Date Time Temp Pulse Resp B/P (MAP) Pulse Ox O2 Delivery O2 Flow Rate FiO2 09/29/18 08:04 98.7 91 20 109/66 (80) 98 09/29/18 00:28 99.0 100 18 113/69 (84) 09/28/18 21:44 Nasal Cannula 3.0 09/28/18 14:31 98.0 09/28/18 10:15 98.0 71 22 109/58 99 Nasal Cannula 3 09/28/18 10:00 98.0 70 22 111/60 99 Nasal Cannula 3 09/28/18 09:45 60 22 116/69 100 Nasal Cannula 3 09/28/18 09:24 70 22 121/75 100 Nasal Cannula 3 09/28/18 09:14 68 22 134/71 100 Simple Mask 8 09/28/18 09:03 68 22 134/71 100 Simple Mask 8 09/28/18 09:00 Nasal Cannula 3.0 09/28/18 08:50 75 22 104/72 100 Simple Mask 8 09/28/18 08:45 64 22 107/60 100 Simple Mask 8 I&O Intake and Output 09/28/18 09/29/18 19:00 07:00 Intake Total 1186 ml 1200 ml Output Total 650 ml Balance 536 ml 1200 ml Intake Oral 586 ml IV Total 600 ml 800 ml Other 400 ml Output Urine Total 650 ml # Voids 1 3 Dressing: dry Respiratory: clear Abdomen: soft, flat, tenderness, decreased bowel sounds Extremities: no tenderness Laboratory Tests Test 09/28/18 08:55 09/29/18 06:19 White Blood Count 8.5 K/UL (4.8-10.8) 10.9 K/UL (4.8-10.8) H Red Blood Count 4.08 M/UL (4.70-6.10) L 3.91 M/UL (4.70-6.10) L Hemoglobin 12.1 G/DL (14.2-18.0) L 11.6 G/DL (14.2-18.0) L Hematocrit 36.6 % (42.0-52.0) L 35.0 % (42.0-52.0) L Mean Corpuscular Volume 90 FL (80-99) 89 FL (80-99) Mean Corpuscular Hemoglobin 29.5 PG (27.0-31.0) 29.6 PG (27.0-31.0) Mean Corpuscular Hemoglobin Concent 33.0 G/DL (32.0-36.0) 33.1 G/DL (32.0-36.0) Red Cell Distribution Width 12.7 % (11.6-14.8) 13.0 % (11.6-14.8) Platelet Count 310 K/UL (150-450) 337 K/UL (150-450) Mean Platelet Volume 5.5 FL (6.5-10.1) L 5.7 FL (6.5-10.1) L Neutrophils (%) (Auto) 62.8 % (45.0-75.0) 77.9 % (45.0-75.0) H Lymphocytes (%) (Auto) 25.9 % (20.0-45.0) 12.8 % (20.0-45.0) L Monocytes (%) (Auto) 8.2 % (1.0-10.0) 8.2 % (1.0-10.0) Eosinophils (%) (Auto) 2.1 % (0.0-3.0) 0.5 % (0.0-3.0) Basophils (%) (Auto) 1.0 % (0.0-2.0) 0.6 % (0.0-2.0) Sodium Level 140 MMOL/L (136-145) 136 MMOL/L (136-145) Potassium Level 4.1 MMOL/L (3.5-5.1) 3.9 MMOL/L (3.5-5.1) Chloride Level 105 MMOL/L (98-107) 101 MMOL/L (98-107) Carbon Dioxide Level 29 MMOL/L (21-32) 29 MMOL/L (21-32) Anion Gap 6 mmol/L (5-15) 6 mmol/L (5-15) Blood Urea Nitrogen 10 mg/dL (7-18) 6 mg/dL (7-18) L Creatinine 0.9 MG/DL (0.55-1.30) 0.8 MG/DL (0.55-1.30) Estimat Glomerular Filtration Rate > 60 mL/min (>60) > 60 mL/min (>60) Glucose Level 110 MG/DL (74-106) H 113 MG/DL (74-106) H Calcium Level 8.8 MG/DL (8.5-10.1) 9.1 MG/DL (8.5-10.1) Assessment Post-op Diagnosis acute perforated appendicitis with abscess Plan Additional Comments continue antibiotics Gurmeet Trinidad MD Sep 29, 2018 08:41
[2018-09-29] MEDS: Docusate Sod/Senna tab ORAL SCH ×2 (09:19→17:19)
[2018-09-29] MEDS: Pantoprazole Inj IVP SCH (09:19)
[2018-09-29] MEDS: HYDROmorphone 1mg/ml Carpuject IVP PRN ×4 (09:23→21:25)
--- NOTE | 2018-09-29 11:31 | General Progress Note ---
Assessment/Plan Assessment/Plan #Acute ruptured appendicitis, s/p laparoscopy appendectomy on 09/28/17 -continue routine post op care including IS, early ambulation -continue supportive care with anti-emetics,analgesics and IV hydration -continue IV antibiotics -Surgery following -Possible discharge home tomorrow on oral antibiotic Subjective Date patient seen: Sep 29, 2018 Time patient seen: 11:15 ROS Limited/Unobtainable: No Constitutional: Denies: chills, fever Cardiovascular: Denies: chest pain Respiratory: Denies: cough Gastrointestinal/Abdominal: Reports: abdominal pain Genitourinary: Denies: burning Neurologic/Psychiatric: Denies: anxiety Endocrine: Denies: excessive sweating Hematologic/Lymphatic: Denies: anemia Allergies: Coded Allergies: No Known Allergies (Unverified , 09/23/18) Subjective Medicine follow up for acute perforated appendicitis, s/p lap appendectomy. Having moderate pain. No BM but passing flatus Objective Last 24 Hour Vital Signs Date Time Temp Pulse Resp B/P (MAP) Pulse Ox O2 Delivery O2 Flow Rate FiO2 09/29/18 09:00 Nasal Cannula 3.0 09/29/18 08:04 98.7 91 20 109/66 (80) 98 09/29/18 00:28 99.0 100 18 113/69 (84) 09/28/18 21:44 Nasal Cannula 3.0 09/28/18 14:31 98.0 Intake and Output 09/28/18 09/29/18 19:00 07:00 Intake Total 1186 ml 1200 ml Output Total 650 ml Balance 536 ml 1200 ml Intake Oral 586 ml IV Total 600 ml 800 ml Other 400 ml Output Urine Total 650 ml # Voids 1 3 Laboratory Tests 09/29/18 06:19: White Blood Count 10.9H, Red Blood Count 3.91L, Hemoglobin 11.6L, Hematocrit 35.0L, Mean Corpuscular Volume 89, Mean Corpuscular Hemoglobin 29.6, Mean Corpuscular Hemoglobin Concent 33.1, Red Cell Distribution Width 13.0, Platelet Count 337, Mean Platelet Volume 5.7L, Neutrophils (%) (Auto) 77.9H, Lymphocytes (%) (Auto) 12.8L, Monocytes (%) (Auto) 8.2, Eosinophils (%) (Auto) 0.5, Basophils (%) (Auto) 0.6, Sodium Level 136, Potassium Level 3.9, Chloride Level 101, Carbon Dioxide Level 29, Anion Gap 6, Blood Urea Nitrogen 6L, Creatinine 0.8, Estimat Glomerular Filtration Rate > 60, Glucose Level 113H, Calcium Level 9.1 Height (Feet): 5 Height (Inches): 8.00 Weight (Pounds): 185 General Appearance: alert EENT: normal ENT inspection Neck: non-tender, normal alignment Cardiovascular: normal peripheral pulses, normal rate Respiratory/Chest: chest wall non-tender, lungs clear Abdomen: normal bowel sounds, soft Burton Gannon MD Sep 29, 2018 11:31
[2018-09-29] MEDS ORDERED: Hydromorphone 0.5mg/0.5ml inj IVP SCH (14:00)
[2018-09-29 20:00] VITALS: BP 105/71
[2018-09-30] VITALS: BP 116/67
[2018-09-30 04:00] VITALS: BP 113/63
[2018-09-30] MEDS: Piperacillin/Tazobactam 4.5 GM in D5W 110 ML IVPB SCH (06:12)
[2018-09-30 07:50] LABS: BASOPHILS % (AUTO) 0.7 % (0.0-2.0); EOSINOPHILS % (AUTO) 2.9 % (0.0-3.0); HEMATOCRIT 36.4 % (42.0-52.0); HEMOGLOBIN 12.1 G/DL (14.2-18.0); LYMPHOCYTES % (AUTO) 18.8 % (20.0-45.0); MEAN CORPUSCULAR VOLUME 90 FL (80-99); NEUTROPHILS % (AUTO) 66.7 % (45.0-75.0); PLATELET COUNT 396 K/UL (150-450); RED BLOOD COUNT 4.06 M/UL (4.70-6.10); RED CELL DISTRIBUTION WIDTH 13.3 % (11.6-14.8); WHITE BLOOD COUNT 8.2 K/UL (4.8-10.8)
[2018-09-30 08:00] VITALS: BP 126/55
--- NOTE | 2018-09-30 09:09 | Discharge Instructions ---
Discharge Instructions For Congestive Heart Failure Reminder Follow up with Surgeon Dr. Trinidad in 1 week Burton Gannon MD Sep 30, 2018 09:09
--- NOTE | 2018-09-30 09:11 | Discharge Summary ---
Discharge Summary Hospital Course Date of Admission Sep 27, 2018 at 17:28 Date of Discharge Admitting Diagnosis APPENDICITIS HPI Ketan Osuna is a 23 year old male who was admitted on Sep 27, 2018 at 17:28 for Appendicitis Hospital Course Acute ruptured appendicitis, s/p laparoscopy appendectomy on 09/28/17. Did well post-op, tolerating diet. Cleared for discharge home by surgery. Discharge home on antibiotics and pain medications. Follow up with surgery as outpatient Discharge Discharge Disposition Patient was discharged to Burton Gannon MD Sep 30, 2018 09:11
--- NOTE | 2018-09-30 09:16 | General Surgery Progress Note ---
General Surgery-Progress Note Subjective Procedure Performed Laparoscopic Appendectomy and partial omentectomy Symptoms: improved, BM Objective Last 24 Hour Vital Signs Date Time Temp Pulse Resp B/P (MAP) Pulse Ox O2 Delivery O2 Flow Rate FiO2 09/30/18 08:00 98.7 71 20 126/55 (78) 99 09/30/18 04:00 98.0 74 17 113/63 (80) 97 09/30/18 00:00 97.7 97 19 116/67 (83) 98 09/29/18 21:00 Room Air 09/29/18 20:00 98.8 88 20 105/71 (82) 98 I&O Intake and Output 09/29/18 09/30/18 19:00 07:00 Intake Total 1000 ml 400 ml Output Total 750 ml Balance 250 ml 400 ml Intake Oral 1000 ml 400 ml Output Urine Total 750 ml # Voids 2 2 Dressing: dry Respiratory: clear Abdomen: soft, flat, tenderness, present bowel sounds Extremities: no tenderness Laboratory Tests Test 09/30/18 07:20 White Blood Count 8.2 K/UL (4.8-10.8) Red Blood Count 4.06 M/UL (4.70-6.10) L Hemoglobin 12.1 G/DL (14.2-18.0) L Hematocrit 36.4 % (42.0-52.0) L Mean Corpuscular Volume 90 FL (80-99) Mean Corpuscular Hemoglobin 29.8 PG (27.0-31.0) Mean Corpuscular Hemoglobin Concent 33.3 G/DL (32.0-36.0) Red Cell Distribution Width 13.3 % (11.6-14.8) Platelet Count 396 K/UL (150-450) Mean Platelet Volume 5.5 FL (6.5-10.1) L Neutrophils (%) (Auto) 66.7 % (45.0-75.0) Lymphocytes (%) (Auto) 18.8 % (20.0-45.0) L Monocytes (%) (Auto) 11.0 % (1.0-10.0) H Eosinophils (%) (Auto) 2.9 % (0.0-3.0) Basophils (%) (Auto) 0.7 % (0.0-2.0) Assessment Post-op Diagnosis acute perforated appendicitis with abscess Plan Additional Comments can be discharged home Gurmeet Trinidad MD Sep 30, 2018 09:16
[2018-09-30] MEDS: Docusate Sod/Senna tab ORAL SCH (09:21)
[2018-09-30] MEDS: Pantoprazole Inj IVP SCH (09:21)
[2018-09-30] MEDS: HYDROmorphone 1mg/ml Carpuject IVP PRN (09:22)
[2018-09-30] MEDS ORDERED: CEPHALEXIN500 MG ORAL (11:53)
[2018-09-30] MEDS ORDERED: TRAMADOL HCL50 MG ORAL (11:56)
[2018-09-30 12:00] VITALS: BP 92/60
[2018-09-30] MEDS ORDERED: SENNA8.6 M2 PO (12:20)
[2018-09-30] MEDS ORDERED: DOCUSATE SODIU100 MG ORAL (12:22)
[2018-09-30 13:20] VITALS: BP 107/65
== END 2018-09-30 13:25 | disposition home or self-care (01) | DRG 233 ==
LOC: EMR 13:48 → UNDOADMIN 17:28 → 3E 17:28 → EDBEDREQ 18:35 → 3E 19:45
PROC: 0DBU4ZZ Excision of Omentum, Percutaneous Endoscopic Approach (ICD-10-PCS; 2018-09-28)
PROC: 0DTJ4ZZ Resection of Appendix, Percutaneous Endoscopic Approach (ICD-10-PCS; principal; 2018-09-28 07:00)
DX: K35.21 Acute appendicitis with generalized peritonitis, with abscess (principal); F12.90 Cannabis use, unspecified, uncomplicated
CPT/HCPCS: 36415; 74177; 80048; 80053; 81003; 83690; 85025; 87070; 87075; 87086; 87181; 87205; 94003; 94150; 96361; 96365; 96375; 99285; C9399; J2405; J2710

== ENCOUNTER 2018-10-08 07:17 | Inpatient (IN) | payer MEDICAID ==
[~2018-10-08] VITALS: Ht 165.1 cm; Wt 83.9 kg
[~2018-10-08 07:17] MED LIST changes: +CEPHALEXIN500 MG ORAL; +DOCUSATE SODIU100 MG ORAL; +SENNA8.6 M2 PO; +TRAMADOL HCL50 MG ORAL
[2018-10-08 07:34] VITALS: BP 104/53
--- NOTE | 2018-10-08 07:38 | NUR ---
ED Nurse Note: A/OX4. AMBULATED IN TO ER DUE TO BURNING UPPER ABDOMINAL PAIN 04/02 AFTER EATING 8 CANDIES AT 0400. PER PT, HE HAD APPENDECTOMY ABOUT A WEEK AGO. DENIES N/V/D NOR FEVER. C/O SLIGHT BURNING PAIN WHEN URINATE.
--- NOTE | 2018-10-08 08:05 | NUR ---
ED Nurse Note: blood specimens and urine collected and sent down to the lab.
[2018-10-08 08:20] LABS: BASOPHILS % (AUTO) 0.4 % (0.0-2.0); EOSINOPHILS % (AUTO) 0.6 % (0.0-3.0); HEMATOCRIT 39.3 % (42.0-52.0); HEMOGLOBIN 13.1 G/DL (14.2-18.0); LYMPHOCYTES % (AUTO) 9.8 % (20.0-45.0); MEAN CORPUSCULAR VOLUME 89 FL (80-99); MONOCYTES % (AUTO) 5.3 % (1.0-10.0); NEUTROPHILS % (AUTO) 83.9 % (45.0-75.0); PLATELET COUNT 485 K/UL (150-450); RED BLOOD COUNT 4.41 M/UL (4.70-6.10); RED CELL DISTRIBUTION WIDTH 12.6 % (11.6-14.8); WHITE BLOOD COUNT 14.3 K/UL (4.8-10.8)
[2018-10-08 08:31] LABS: ANION GAP 8 mmol/L (5-15); BLOOD UREA NITROGEN 11 mg/dL (7-18); CALCIUM 9.3 MG/DL (8.5-10.1); CARBON DIOXIDE 27 MMOL/L (21-32); CHLORIDE 103 MMOL/L (98-107); CREATININE 0.9 MG/DL (0.55-1.30); POTASSIUM 3.7 MMOL/L (3.5-5.1); SODIUM 138 MMOL/L (136-145)
[2018-10-08 08:36] LABS: ALANINE AMINOTRANSFERASE 123 U/L (12-78); ALBUMIN 3.5 G/DL (3.4-5.0); ALBUMIN/GLOBULIN RATIO 0.8 (1.0-2.7); ALKALINE PHOSPHATASE 119 U/L (46-116); ASPARTATE AMINO TRANSFERASE 175 U/L (15-37); BILIRUBIN,TOTAL 0.8 MG/DL (0.2-1.0)
--- NOTE | 2018-10-08 08:49 | Emergency Room Report ---
History of Present Illness General Chief Complaint: Abdominal Pain Source: Patient Present Illness HPI 23-year-old male presents ED for evaluation. Patient complaining of abdominal pain. Started 4 AM. Started after he ate symptoms spicy candies last night. States pain is epigastric, burning, nonradiating. Denies fevers or chills. Denies chest pain or shortness of breath. Has nausea or vomiting. Denies diarrhea. Patient states that he was admitted here recently for appendectomy. Was scheduled to see surgeon today to have dressings removed. Denies any pain over surgical site. No other aggravating relieving factors. Denies any other associated symptoms Allergies: Coded Allergies: No Known Allergies (Unverified , 09/23/18) Patient History Past Surgical History: appy Pertinent Family History: none Social History: Denies: smoking, alcohol use, drug use Immunizations: UTD Reviewed Nursing Documentation: PMH: Agreed; PSxH: Agreed Nursing Documentation-PMH Past Medical History: No History, Except For Hx Cardiac Problems: No - appendectomy Hx Hypertension: No Hx Pacemaker: No Hx Asthma: No Hx COPD: No Hx Diabetes: No Hx Cancer: No Hx Gastrointestinal Problems: Yes - gallstones Hx Dialysis: No History Of Psychiatric Problem: No Hx Neurological Problems: No Hx Cerebrovascular Accident: No Hx Seizures: No Review of Systems All Other Systems: negative except mentioned in HPI Physical Exam Vital Signs Date Time Temp Pulse Resp B/P (MAP) Pulse Ox O2 Delivery O2 Flow Rate FiO2 10/08/18 07:21 97.9 87 14 104/53 97 Room Air Sp02 EP Interpretation: reviewed, normal General Appearance: no apparent distress, alert, GCS 15, non-toxic Head: normocephalic, atraumatic Eyes: bilateral eye normal inspection, bilateral eye PERRL ENT: hearing grossly normal, normal pharynx, no angioedema, normal voice Neck: full range of motion, supple/symm/no masses Respiratory: chest non-tender, lungs clear, normal breath sounds, speaking full sentences Cardiovascular #1: regular rate, rhythm, no edema Cardiovascular #2: 2+ carotid (R), 2+ carotid (L), 2+ radial (R), 2+ radial (L) , 2+ dorsalis pedis (R), 2+ dorsalis pedis (L) Gastrointestinal: normal bowel sounds, soft, non-distended, no guarding, no rebound, tenderness - epigastric, other - surgical sites C/D/I lower abdomen. no guarding or rebound Rectal: deferred Genitourinary: normal inspection, no CVA tenderness Musculoskeletal: back normal, gait/station normal, normal range of motion, non- tender Neurologic: alert, oriented x3, responsive, motor strength/tone normal, sensory intact, speech normal Psychiatric: judgement/insight normal, memory normal, mood/affect normal, no suicidal/homicidal ideation Reflexes: 3+ bicep (R), 3+ bicep (L), 3+ tricep (R), 3+ tricep (L), 3+ knee (R) , 3+ knee (L) Skin: normal color, no rash, warm/dry, well hydrated Lymphatic: no adenopathy Medical Decision Making Diagnostic Impression: Primary Impression: Acute pancreatitis Qualified Codes: K85.90 - Acute pancreatitis without necrosis or infection, unspecified Additional Impression: Abnormal LFTs ER Course Hospital Course 23-year-old male presents to ED with abdominal pain, s/p appendectomy Differential diagnoses include: postop infection, gastritis, postoperative pain Clinical course 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 electrolytes ok. Lipase > 2000, LFTs elevated. CT abdomen and pelvis - pancreatitis, CBD dilated consideration for gallstone pancreatitis Case discussed with Dr. Hanna and he agreed to accept the patient to his service for further care and support Dr Trinidad operated on patient recently. he will follow the patient I feel this is a highly complex case requiring extensive working including EKG/ Rhythm strip, Xray/CT/US, Blood/urine lab work, repeat exams while in ED, and administration of strong opiates/narcotics for pain control, admission to hospital or close patient follow up. Diagnosis - acute pancreatitis, abnomral LFTs Patient admitted to floor in serious condition Labs Test 10/08/18 08:05 White Blood Count 14.3 K/UL (4.8-10.8) Red Blood Count 4.41 M/UL (4.70-6.10) Hemoglobin 13.1 G/DL (14.2-18.0) Hematocrit 39.3 % (42.0-52.0) Mean Corpuscular Volume 89 FL (80-99) Mean Corpuscular Hemoglobin 29.6 PG (27.0-31.0) Mean Corpuscular Hemoglobin Concent 33.2 G/DL (32.0-36.0) Red Cell Distribution Width 12.6 % (11.6-14.8) Platelet Count 485 K/UL (150-450) Mean Platelet Volume 5.7 FL (6.5-10.1) Neutrophils (%) (Auto) 83.9 % (45.0-75.0) Lymphocytes (%) (Auto) 9.8 % (20.0-45.0) Monocytes (%) (Auto) 5.3 % (1.0-10.0) Eosinophils (%) (Auto) 0.6 % (0.0-3.0) Basophils (%) (Auto) 0.4 % (0.0-2.0) Sodium Level 138 MMOL/L (136-145) Potassium Level 3.7 MMOL/L (3.5-5.1) Chloride Level 103 MMOL/L (98-107) Carbon Dioxide Level 27 MMOL/L (21-32) Anion Gap 8 mmol/L (5-15) Blood Urea Nitrogen 11 mg/dL (7-18) Creatinine 0.9 MG/DL (0.55-1.30) Estimat Glomerular Filtration Rate > 60 mL/min (>60) Glucose Level 114 MG/DL (74-106) Calcium Level 9.3 MG/DL (8.5-10.1) Total Bilirubin 0.8 MG/DL (0.2-1.0) Aspartate Amino Transf (AST/SGOT) 175 U/L (15-37) Alanine Aminotransferase (ALT/SGPT) 123 U/L (12-78) Alkaline Phosphatase 119 U/L (46-116) Total Protein 7.9 G/DL (6.4-8.2) Albumin 3.5 G/DL (3.4-5.0) Globulin 4.4 g/dL Albumin/Globulin Ratio 0.8 (1.0-2.7) Lipase > 2000 U/L (73-393) CT/MRI/US Diagnostic Results CT/MRI/US Diagnostic Results : Imaging Test Ordered: CT A/P Impression Impression: Mild pancreatic swelling, peripancreatic inflammatory changes, consistent with nonnecrotizing acute pancreatitis. This was also reported on prior study of 09/27/2018; findings appear somewhat increased from that study Interim appendectomy. Tiny right lower quadrant rim-enhancing fluid collection measures 34 x 7 x 18 mm, probably a routine postoperative collection, but infected collection cannot be ruled out Small amount of free fluid within the pelvis, presumably related to the recent surgery Last Vital Signs Date Time Temp Pulse Resp B/P (MAP) Pulse Ox O2 Delivery O2 Flow Rate FiO2 10/08/18 07:34 87 14 Room Air 10/08/18 07:34 97.9 104/53 97 Status: improved Disposition: ADMITTED INPATIENT Condition: Serious Referrals: NOT CHOSEN IPA/,REFERRING (PCP) Chevy Mccloud MD Oct 08, 2018 08:49
[2018-10-08] MEDS ORDERED: Ketorolac 30mg Inj IV ONE (09:00)
[2018-10-08] MEDS ORDERED: Isovue-300 100ml vial INJ PRN (09:00)
--- NOTE | 2018-10-08 09:52 | Diagnostic Imaging Report ---
Clinical Indication: Abdominal pain Technique: No oral contrast utilized, per emergency room physician request IV administration nonionic contrast. Venous phase spiral acquisition obtained through the abdomen and pelvis. Multiplanar reconstructions were generated. Total dose length product 791.18 mGycm. CTDIvol(s) 15.23 mGy. Dose reduction achieved using automated exposure control Comparison: 09/27/2018 Findings: There is slight enlargement of the pancreas and infiltration of the peripancreatic fat this was also previously reported, appears slightly more striking than on the previous exam. No discrete peripancreatic fluid collections. The pancreas enhances normally. The gallbladder is nondistended. No gallstones are demonstrated. The common bile duct is dilated, measuring 13 mm in diameter, previously 9 mm. There is also mild intrahepatic biliary ductal dilatation which appears slightly increased from the prior study. No definite downstream obstructive lesion is demonstrated, however. The lack of enteric contrast limits assessment of the GI tract. Patient has undergone interim appendectomy, with a surgical staple line present in the right lower quadrant. There is a tiny rim-enhancing fluid collection in the right lower quadrant which measures approximately 18 mm transverse by 7 mm AP by 34 mm craniocaudad. Some inflammatory changes are seen in the right lower quadrant, although this is less than what was seen previously. Inflammatory changes of the left lower quadrant subcutaneous fat and a small abdominal wall defect in the left lower quadrant presumably reflect prior laparoscopy port. No evidence of diverticulosis or diverticulitis. Small amount of fluid within the pelvis. No small bowel distention. No free or loculated intraperitoneal gas demonstrated. Liver, spleen, adrenals, kidneys are unremarkable. No renal or ureteral calculi, hydronephrosis, or hydroureter. The bladder, prostate, and seminal vesicles are unremarkable. No pelvic mass or adenopathy. No mesenteric or retroperitoneal mass or adenopathy. The included lung bases are clear. The bones are unremarkable. Impression: Mild pancreatic swelling, peripancreatic inflammatory changes, consistent with nonnecrotizing acute pancreatitis. This was also reported on prior study of 09/27/2018; findings appear somewhat increased from that study Interim appendectomy. Tiny right lower quadrant rim-enhancing fluid collection measures 34 x 7 x 18 mm, probably a routine postoperative collection, but infected collection cannot be ruled out Small amount of free fluid within the pelvis, presumably related to the recent surgery The CT scanner at [facility] is accredited by the [employer] and the scans are performed using protocols designed to limit radiation exposure to as low as reasonably achievable to attain images of sufficient resolution adequate for diagnostic evaluation.
--- NOTE | 2018-10-08 10:36 | History and Physical ---
History of Present Illness General Date patient seen: Oct 08, 2018 Time patient seen: 10:35 Reason for Hospitalization: Abdominal Pain Present Illness HPI 23 year old man with history of gallstones, recent diagnosis of acute pancreatitis at outside hospital, recent diagnosis of acute ruptured appendicitis, s/p laparoscopy appendectomy on 09/28/17. Patient presented with moderate epigastric burning pain that started at 4AM today, improved with oral pain meds given to him post-op. In ED labs showed elevated lipase + abnormal LFTs and CT A/P showed findings consistent with acute pancreatitis. Social History: He denies any alcohol or drug use Family History: No history of pancreatic disease Allergies: Coded Allergies: No Known Allergies (Unverified , 09/23/18) Medication History Scheduled Cephalexin* (Keflex*), 500 MG ORAL EVERY 6 HOURS, (Reported) Docusate Sodium* (Docusate Sodium*), 100 MG ORAL THREE TIMES A DAY, (Reported) Omeprazole (Omeprazole), 40 MG ORAL DAILY, (Reported) Ranitidine Hcl* (Zantac*), 150 MG ORAL TWICE A DAY Sennosides (Senna), 8.6 MG PO TID, (Reported) Scheduled PRN Ondansetron Odt* (Zofran Odt*), 4 MG BC EVERY 6 HOURS PRN for Nausea & Vomiting Tramadol Hcl* (Ultram*), 50 MG ORAL Q4HR PRN for For Pain, (Reported) Patient History Healthcare decision maker Resuscitation status Advanced Directive on File Review of Systems Constitutional: Denies: chills, fever, malaise Eye: Denies: eye pain ENT: Denies: ear pain Respiratory: Denies: cough, orthopnea, shortness of breath Cardiovascular: Denies: chest pain, edema, palpitations Gastrointestinal: Reports: abdominal pain; Denies: constipation, diarrhea, nausea, vomiting Musculoskeletal: Denies: back pain, gout Skin: Denies: rash Neurological: Denies: headache Endocrine: Denies: excessive sweating Hematologic/Lymphatic: Denies: anemia Physical Exam General Appearance: no apparent distress, alert HEENT: normocephalic, atraumatic, anicteric Neck: non-tender, normal alignment Respiratory/Chest: chest wall non-tender, lungs clear, normal breath sounds Cardiovascular/Chest: normal peripheral pulses, normal rate, regular rhythm Abdomen: soft, no organomegaly, no mass, other - Mild epigastric tenderness Extremities: normal range of motion, non-tender, normal inspection Skin Exam: normal pigmentation, warm/dry 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, no motor/sensory deficits, abnormal gait Last 24 Hour Vital Signs Date Time Temp Pulse Resp B/P (MAP) Pulse Ox O2 Delivery O2 Flow Rate FiO2 10/08/18 09:29 97.9 10/08/18 07:34 87 14 Room Air 10/08/18 07:34 97.9 87 14 104/53 97 Room Air 10/08/18 07:21 97.9 87 14 104/53 97 Room Air Laboratory Tests Test 10/08/18 08:05 White Blood Count 14.3 K/UL (4.8-10.8) H Red Blood Count 4.41 M/UL (4.70-6.10) L Hemoglobin 13.1 G/DL (14.2-18.0) L Hematocrit 39.3 % (42.0-52.0) L Mean Corpuscular Volume 89 FL (80-99) Mean Corpuscular Hemoglobin 29.6 PG (27.0-31.0) Mean Corpuscular Hemoglobin Concent 33.2 G/DL (32.0-36.0) Red Cell Distribution Width 12.6 % (11.6-14.8) Platelet Count 485 K/UL (150-450) H Mean Platelet Volume 5.7 FL (6.5-10.1) L Neutrophils (%) (Auto) 83.9 % (45.0-75.0) H Lymphocytes (%) (Auto) 9.8 % (20.0-45.0) L Monocytes (%) (Auto) 5.3 % (1.0-10.0) Eosinophils (%) (Auto) 0.6 % (0.0-3.0) Basophils (%) (Auto) 0.4 % (0.0-2.0) Sodium Level 138 MMOL/L (136-145) Potassium Level 3.7 MMOL/L (3.5-5.1) Chloride Level 103 MMOL/L (98-107) Carbon Dioxide Level 27 MMOL/L (21-32) Anion Gap 8 mmol/L (5-15) Blood Urea Nitrogen 11 mg/dL (7-18) Creatinine 0.9 MG/DL (0.55-1.30) Estimat Glomerular Filtration Rate > 60 mL/min (>60) Glucose Level 114 MG/DL (74-106) H Calcium Level 9.3 MG/DL (8.5-10.1) Total Bilirubin 0.8 MG/DL (0.2-1.0) Aspartate Amino Transf (AST/SGOT) 175 U/L (15-37) H Alanine Aminotransferase (ALT/SGPT) 123 U/L (12-78) H Alkaline Phosphatase 119 U/L (46-116) H Total Protein 7.9 G/DL (6.4-8.2) Albumin 3.5 G/DL (3.4-5.0) Globulin 4.4 g/dL Albumin/Globulin Ratio 0.8 (1.0-2.7) L Lipase > 2000 U/L (73-393) H Height (Feet): 5 Height (Inches): 9.00 Weight (Pounds): 180 Medications Current Medications Medications (Trade) Dose Ordered Sig/Hesham Route PRN Reason Start Time Stop Time Status Last Admin Dose Admin Dextrose (Dextrose 50%) 25 ml Q30M PRN IV Hypoglycemia 10/08/18 10:30 11/07/18 10:29 Dextrose (Dextrose 50%) 50 ml Q30M PRN IV Hypoglycemia 10/08/18 10:30 11/07/18 10:29 Iopamidol (Isovue-300 100ml) 100 ml NOW PRN INJ Radiology Procedure 10/08/18 09:00 10/09/18 08:59 Lactated Ringer's 1,000 ml @ 150 mls/hr Q6H40M IV 10/08/18 10:30 11/07/18 10:29 Morphine Sulfate (Morphine Sulfate) 1 mg Q4H PRN IVP Severe Pain (Pain Scale 7-10) 10/08/18 10:30 10/15/18 10:29 Ondansetron HCl (Zofran) 4 mg Q6H PRN IVP Nausea & Vomiting 10/08/18 10:30 11/07/18 10:29 Pantoprazole (Protonix) 40 mg DAILY IV 10/08/18 10:30 11/07/18 10:29 Assessment/Plan Assessment/Plan #Acute pancreatitis, suspected to be from gallstones -admit to medical service -NPO, IV fluids, morphine and Zofran -US RUQ -Consult GI -will likely need cholecystectomy as outpatient #Recent appendicitis s/p appendectomy -patient was to follow up with general surgery as outpatient today -consult Dr. Trinidad for post-op wound check VTE PPx heparin SC Full Code I spent 70 minutes on this patient's case, and~35~minutes was dedicated to counseling and/or care coordination. Burton Gannon MD Oct 08, 2018 10:36
--- NOTE | 2018-10-08 10:44 | NUR ---
ED Nurse Note: US ABD AT THE BEDSIDE
--- NOTE | 2018-10-08 11:28 | NUR ---
ED Nurse Note: TELEPHONE REPORT GIVEN TO LD DOLL FROM 4E BUT DOES NOT HAVE BED AVAILABLE FOR THE PATIENT. SHE STATES SHE WILL CALL BACK WHEN IT'S READY.
[2018-10-08] MEDS: LR 1000ml 1,000 ML IV SCH ×3 (11:32→19:51)
[2018-10-08] MEDS: Pantoprazole Inj IV SCH (11:32)
--- NOTE | 2018-10-08 11:40 | NUR ---
TRANSFER TO FLOOR: Patient transferred to #4E as ordered by MIGUEL Theodore . Report given to LD Becerril. Belongings given to pt. No s/s of distress.
--- NOTE | 2018-10-08 11:59 | Diagnostic Imaging Report ---
Indication: Abdominal pain Technique: Booth-scale and duplex images of the upper abdomen were obtained. Doppler interrogation of the pancreatic vessels Comparison: Reference made to CT scan of earlier the same day Findings: Gallbladder demonstrates gallstones. There is equivocal gallbladder wall thickening versus prominent pericholecystic fat, favor the latter Sonographic Alegria's sign is negative. Common bile duct measures 13 mm in diameter. No intrahepatic biliary ductal dilatation. Liver demonstrates normal echogenicity, no focal abnormality. Portal vein and hepatic veins are patent. The pancreas is enlarged and hypoechoic. No discrete peripancreatic fluid Spleen is unremarkable. Left kidney measures 12.8 cm in length. Right kidney measures 11.6 cm length. Both kidneys demonstrate normal echogenicity. There is no hydronephrosis. No focal abnormality . Abdominal aorta is partially obscured by bowel gas, visualized portions are non-aneurysmal . Impression: Cholelithiasis. Note that these are occult on recent CT scans. Equivocal gallbladder wall thickening, suspect artifactual but raises possibility of acute cholecystitis. Consider nuclear medicine hepatobiliary scan if there is high clinical suspicion Dilated common bile duct, downstream obstruction possible. Consider MRCP for better characterization Enlarged hypoechoic pancreas, correlating with findings suggestive of pancreatitis on earlier CT. Note inability to visualize portions of the abdominal aorta
--- NOTE | 2018-10-08 13:00 | NUR ---
NURSE NOTES: 1135: Received report from LD Mercer in ED. 1150:Pt transferred from ED to [facility]. Oriented to room, roommate, bed controls, call light, bathroom, admission process. Pt A/Ox4, talkative, vitals obtain and assessment done, bed in lowest position, call light within reach.
[2018-10-08 13:02] VITALS: BP 119/66
--- NOTE | 2018-10-08 15:00 | Consultation ---
DATE OF CONSULTATION: 10/08/2018 CONSULTING PHYSICIAN: Gurmeet Trinidad M.D. REQUESTING PHYSICIAN: ER physician. REASON FOR CONSULTATION: Abdominal pain. HISTORY OF PRESENT ILLNESS: This is a 23-year-old, male, who presented to emergency room complaining of abdominal pain since early this morning. He stated the pain was located at the right upper quadrant, steady. No radiation. He was nauseated but no vomiting. At this time, the pain has improved. He denied any previous history of similar pain. This patient was admitted to our hospital on September 27, 2018 for acute perforated appendicitis but he stated that about 5 to 6 days prior to the previous admission, he was admitted to the [facility] with a diagnosis of pancreatitis although the pain was at the right lower quadrant. He stated after 2 days the pain improved but he was not happy with the service that he signed out AMA. He denies any previous history of similar episodes. He denies drinking. He denies fever, cough, dysuria ,or frequency. He denies any history of jaundice. PAST MEDICAL HISTORY: He denies allergies, asthma, diabetes, hypertension, cardiac and renal diseases. PAST SURGICAL HISTORY: Surgeries include laparoscopic appendectomy on September 27, 2018. MEDICATIONS: Currently he is on omeprazole and few other medication. SOCIAL HISTORY: The patient is a 23-year-old, male, who is single without any children. 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 He denies smoking and drinking but he admits to smoking marijuana. REVIEW OF SYSTEMS: Noncontributory. PHYSICAL EXAMINATION: GENERAL: The patient appeared to be a well-developed, well-nourished, 23-year-old, male, lying on the bed, complaining of some mild abdominal pain. HEENT: Head is normocephalic and atraumatic. Eyes, pupils are equal, round, and reactive to light. Mouth is clear. NECK: There is no palpable thyromegaly or adenopathy. CHEST: Clear to auscultation and percussion. HEART: There is no gallop or murmur. S1 and S2 are within normal limits. ABDOMEN: Soft, flat, with mild tenderness in the epigastrium and right upper quadrant. There is no palpable organomegaly. Bowel sounds are audible. The incisions for the laparoscopy appendectomy healing very well. GENITOURINARY: Genitalia normal. EXTREMITIES: Within normal limits. LABORATORY DATA: CBC has shown WBC of 13,000 with mild left shift. Chemistry has shown elevated liver enzymes but the bilirubin is 0.8, and the lipase has been for more than 2000. Ultrasound had shown cholelithiasis with possible thickening of the gallbladder wall but that was not for sure. ASSESSMENT: Gallstone pancreatitis. PLAN: At this time, the patient requires an NPO and intravenous fluids. After that, pancreatitis resolved. He can benefit from the laparoscopy cholecystectomy but prior to that, he would require MRCP to make sure about the common bile duct as the common bile duct was very dilated at 13 mm. Gurmeet Trinidad M.D. DR: Paula JOB#: [id number] CC:
[2018-10-08] MEDS: Morphine Sulfate 2mg/ml Inj(IV/IM USE ONLY) IVP PRN ×2 (15:51→19:51)
[2018-10-08 16:00] VITALS: BP 109/64
--- NOTE | 2018-10-08 16:47 | Diagnostic Imaging Report ---
Indication: Abdominal pain, pancreatitis, Technique: Coronal and axial single shot fast spin-echo breath-hold, axial T2 FRFSE, 2-D thick slab MRCP, AXIAL 2-D FIESTA fat saturated, axial 3-D dual echo breath-hold, water weighted axial LAVA FLEX, revealed 3-D MRCP images were obtained of the abdomen. MIP reconstructions were generated of the bile ducts Comparison: Reference made to ultrasound and CT of the abdomen dated 10/08/2017 Findings: Gallbladder contains gallstones. The gallbladder wall is not thickened. The common bile duct, common hepatic duct, and central intrahepatic ducts are dilated., Measuring up to 12 mm in diameter. At least 2 filling defects, each measuring approximately 5 mm in diameter, are seen in the downstream common bile duct near the ampulla. Mild enlargement of the pancreas and peripancreatic edema is demonstrated. No focal discrete fluid collections are demonstrated. The pancreatic duct is mildly prominent in caliber. The liver, adrenals, kidneys are all unremarkable. Impression: Cholelithiasis Evidence of choledocholithiasis, with at least 2 small calculi seen in the downstream common bile duct. These are occult on prior CT, even in retrospect. There is, as previous reported, biliary ductal dilatation with the common hepatic duct and common bile duct measuring up to 13 mm Evidence of mild acute pancreatitis, also reported on prior CT scans. Note mild prominence to the pancreatic duct. Findings reported to Dr. Ambrosio by phone at the time of interpretation
[2018-10-08 20:00] VITALS: BP 113/60
--- NOTE | 2018-10-08 20:00 | NUR ---
HAND-OFF: Report given to LD Petty.
--- NOTE | 2018-10-08 20:25 | NUR ---
NURSE NOTES: Pt received awake, alert, bed in lowest position but unplugged, pt requesting to have the head raised, fixed the bed, pt c/o pain, AM nurse gave medication at 7:50pm, will monitor, able to make needs known, call light within reach.
--- NOTE | 2018-10-08 21:59 | NUR ---
insulation cupola charger entry Spoke with Dr Petty covering for Dr Mendez re patient severe abdominal pain despite morphine 1 mg q4 prn ivp, she called back after reviewing emr but was unable to enter orders, states has privileges but name does not appear in [employer], therefore discussed with help desk supervisor and ingrid entered under DR Mendez's name.
[2018-10-08] MEDS: HYDROmorphone 1mg/ml Carpuject IVP PRN (22:45)
[2018-10-09] VITALS: BP 126/62
[2018-10-09] MEDS: HYDROmorphone 1mg/ml Carpuject IVP PRN ×4 (02:55→20:24)
[2018-10-09] MEDS: LR 1000ml 1,000 ML IV SCH ×2 (03:03→13:10)
[2018-10-09 04:00] VITALS: BP 99/56
--- NOTE | 2018-10-09 07:10 | NUR ---
NURSE NOTES: Received report from LD Petty. Pt in bed, awake, talkative, A/O x4, bed in lowest position, call light within reach
--- NOTE | 2018-10-09 07:19 | NUR ---
HAND-OFF: Report given to LD Becerril.
[2018-10-09] MEDS: Pantoprazole Inj IV SCH (07:36)
[2018-10-09 07:37] VITALS: BP 107/49
--- NOTE | 2018-10-09 08:45 | General Progress Note ---
Assessment/Plan Status: stable Assessment/Plan #Acute pancreatitis, suspected to be from gallstones - cont NPO, IV fluids, morphine and Zofran -appreciate GI recs - MRCP when able - possible lap jamar after #Recent appendicitis s/p appendectomy -patient was to follow up with general surgery as outpatient today -consult Dr. Trinidad for post-op wound check VTE PPx heparin SC Full Code I have spent over 60 mins reviewing records and tests and communicating with other medical office administrator, during/following contact with patient. I spent 40 minutes on this patient's case, and 30 minutes were dedicated to counseling and/or care coordination. Discussed with patient/family, nursing staff, SW/CM, [] regarding clinical status, treatment course, and disposition planning. Time of note may not reflect time of encounter. Subjective Allergies: Coded Allergies: No Known Allergies (Unverified , 09/23/18) Subjective f/u pancreatitis, abd pain, n/v still having abd pain nausea vomited overnight denies fevers/chills ROS: 14 point ROS reviewed and negative except per the above Objective Last 24 Hour Vital Signs Date Time Temp Pulse Resp B/P (MAP) Pulse Ox O2 Delivery O2 Flow Rate FiO2 10/09/18 07:37 97.3 78 16 107/49 (68) 97 10/09/18 04:00 98.4 87 18 99/56 (70) 97 10/09/18 00:00 98.1 80 18 126/62 (83) 95 10/08/18 21:00 Room Air 10/08/18 20:00 97.9 68 18 113/60 (77) 98 10/08/18 16:21 98.2 10/08/18 16:00 98.2 65 18 109/64 (79) 96 10/08/18 13:02 98.2 65 16 119/66 (83) 98 10/08/18 13:02 Room Air 10/08/18 11:40 97.9 78 14 104/53 97 Room Air 10/08/18 09:29 97.9 Intake and Output 10/08/18 10/09/18 19:00 07:00 Intake Total 500 ml 1200 ml Balance 500 ml 1200 ml Intake IV Total 500 ml 1200 ml # Voids 4 3 Height (Feet): 5 Height (Inches): 9.00 Weight (Pounds): 185 Objective General Appearance: no apparent distress, alert HEENT: normocephalic, atraumatic, anicteric Neck: non-tender, normal alignment Respiratory/Chest: chest wall non-tender, lungs clear, normal breath sounds Cardiovascular/Chest: normal peripheral pulses, normal rate, regular rhythm Abdomen: soft, no organomegaly, no mass, other - Mild epigastric tenderness Extremities: normal range of motion, non-tender, normal inspection Skin Exam: normal pigmentation, warm/dry Neurologic: gimp tacker II-XII grossly normal, no motor/sensory deficits, abnormal gait Serg Soares MD Oct 09, 2018 08:45
[2018-10-09 09:44] LABS: BASOPHILS % (AUTO) 0.5 % (0.0-2.0); EOSINOPHILS % (AUTO) 0.7 % (0.0-3.0); HEMATOCRIT 37.1 % (42.0-52.0); HEMOGLOBIN 12.1 G/DL (14.2-18.0); LYMPHOCYTES % (AUTO) 21.9 % (20.0-45.0); MEAN CORPUSCULAR VOLUME 89 FL (80-99); MONOCYTES % (AUTO) 7.3 % (1.0-10.0); NEUTROPHILS % (AUTO) 69.6 % (45.0-75.0); PLATELET COUNT 400 K/UL (150-450); RED BLOOD COUNT 4.16 M/UL (4.70-6.10); RED CELL DISTRIBUTION WIDTH 13.1 % (11.6-14.8); WHITE BLOOD COUNT 5.9 K/UL (4.8-10.8)
[2018-10-09 09:57] LABS: ALANINE AMINOTRANSFERASE 246 U/L (12-78); ALBUMIN 3.3 G/DL (3.4-5.0); ALBUMIN/GLOBULIN RATIO 0.8 (1.0-2.7); ALKALINE PHOSPHATASE 174 U/L (46-116); ANION GAP 8 mmol/L (5-15); ASPARTATE AMINO TRANSFERASE 156 U/L (15-37); BILIRUBIN,TOTAL 1.7 MG/DL (0.2-1.0); BLOOD UREA NITROGEN 9 mg/dL (7-18); CALCIUM 9.4 MG/DL (8.5-10.1); CARBON DIOXIDE 28 MMOL/L (21-32); CHLORIDE 104 MMOL/L (98-107); CHOLESTEROL 107 MG/DL (< 200); CREATININE 0.8 MG/DL (0.55-1.30); HDL CHOLESTEROL 27 MG/DL (40-60); POTASSIUM 3.7 MMOL/L (3.5-5.1); SODIUM 140 MMOL/L (136-145); TRIGLYCERIDES 67 MG/DL (30-150)
[2018-10-09 10:08] LABS: BILIRUBIN,DIRECT 0.5 MG/DL (0.0-0.3)
--- NOTE | 2018-10-09 10:40 | General Progress Note ---
Assessment/Plan Problem List: (1) Gallstone pancreatitis ICD Codes: K85.10 - Biliary acute pancreatitis without necrosis or infection SNOMED: 70517509 Assessment/Plan plan ERCP on Thursday Subjective ROS Limited/Unobtainable: Yes Allergies: Coded Allergies: No Known Allergies (Unverified , 09/23/18) Objective Last 24 Hour Vital Signs Date Time Temp Pulse Resp B/P (MAP) Pulse Ox O2 Delivery O2 Flow Rate FiO2 10/09/18 09:00 Room Air 10/09/18 08:07 98.4 10/09/18 07:37 97.3 78 16 107/49 (68) 97 10/09/18 04:00 98.4 87 18 99/56 (70) 97 10/09/18 00:00 98.1 80 18 126/62 (83) 95 10/08/18 21:00 Room Air 10/08/18 20:00 97.9 68 18 113/60 (77) 98 10/08/18 16:21 98.2 10/08/18 16:00 98.2 65 18 109/64 (79) 96 10/08/18 13:02 98.2 65 16 119/66 (83) 98 10/08/18 13:02 Room Air 10/08/18 11:40 97.9 78 14 104/53 97 Room Air Intake and Output 10/08/18 10/09/18 19:00 07:00 Intake Total 500 ml 1200 ml Balance 500 ml 1200 ml Intake IV Total 500 ml 1200 ml # Voids 4 3 Laboratory Tests 10/09/18 08:50: White Blood Count 5.9#, Red Blood Count 4.16L, Hemoglobin 12.1L, Hematocrit 37.1L, Mean Corpuscular Volume 89, Mean Corpuscular Hemoglobin 29.1, Mean Corpuscular Hemoglobin Concent 32.7, Red Cell Distribution Width 13.1, Platelet Count 400, Mean Platelet Volume 5.7L, Neutrophils (%) (Auto) 69.6, Lymphocytes ( %) (Auto) 21.9, Monocytes (%) (Auto) 7.3, Eosinophils (%) (Auto) 0.7, Basophils (%) (Auto) 0.5, Sodium Level 140, Potassium Level 3.7, Chloride Level 104, Carbon Dioxide Level 28, Anion Gap 8, Blood Urea Nitrogen 9, Creatinine 0.8, Estimat Glomerular Filtration Rate > 60, Glucose Level 84, Calcium Level 9.4, Total Bilirubin 1.7H, Direct Bilirubin 0.5H, Aspartate Amino Transf (AST/SGOT) 156H, Alanine Aminotransferase (ALT/SGPT) 246H, Alkaline Phosphatase 174H, Total Protein 7.4, Albumin 3.3L, Globulin 4.1, Albumin/Globulin Ratio 0.8L, Triglycerides Level 67, Cholesterol Level 107, LDL Cholesterol 74, HDL Cholesterol 27L, Cholesterol/HDL Ratio 4.0, Amylase Level 1039*H, Lipase > 2000H Height (Feet): 5 Height (Inches): 9.00 Weight (Pounds): 185 General Appearance: alert EENT: normal ENT inspection Neck: supple Cardiovascular: normal rate Respiratory/Chest: decreased breath sounds Abdomen: normal bowel sounds, non tender, soft Extremities: non-tender Momo Ambrosio MD Oct 09, 2018 10:40
[2018-10-09 12:00] VITALS: BP 112/49
--- NOTE | 2018-10-09 14:05 | NUR ---
NURSE NOTES: Pt stated he does not want to do ERCP if they have to open him up to take out stone. Pt was seen by Dr. Ambrosio this morning. Dr. Ambrosio explained the procedure to him. I provided written/printed education material to pt about ERCP, Cholelithiasis, gallbladder eating, and discussed lifestyle changes needed regarding diet. Pt states he has more questions for Dr. Ambrosio regarding procedure, if stone cannot be taken out via scope. Explained that Dr. Ambrosio will be in tomorrow AM to discuss further.
--- NOTE | 2018-10-09 14:20 | General Surgery Progress Note ---
General Surgery-Progress Note Subjective Symptoms: improved, BM Objective Last 24 Hour Vital Signs Date Time Temp Pulse Resp B/P (MAP) Pulse Ox O2 Delivery O2 Flow Rate FiO2 10/09/18 12:00 97.7 84 16 112/49 (70) 97 10/09/18 09:00 Room Air 10/09/18 08:07 98.4 10/09/18 07:37 97.3 78 16 107/49 (68) 97 10/09/18 04:00 98.4 87 18 99/56 (70) 97 10/09/18 00:00 98.1 80 18 126/62 (83) 95 10/08/18 21:00 Room Air 10/08/18 20:00 97.9 68 18 113/60 (77) 98 10/08/18 16:21 98.2 10/08/18 16:00 98.2 65 18 109/64 (79) 96 I&O Intake and Output 10/08/18 10/09/18 18:59 06:59 Intake Total 500 ml 1200 ml Balance 500 ml 1200 ml Intake IV Total 500 ml 1200 ml # Voids 4 3 Respiratory: clear Abdomen: soft, flat, non-tender, present bowel sounds Extremities: no tenderness Laboratory Tests Test 10/09/18 08:50 White Blood Count 5.9 K/UL (4.8-10.8) # Red Blood Count 4.16 M/UL (4.70-6.10) L Hemoglobin 12.1 G/DL (14.2-18.0) L Hematocrit 37.1 % (42.0-52.0) L Mean Corpuscular Volume 89 FL (80-99) Mean Corpuscular Hemoglobin 29.1 PG (27.0-31.0) Mean Corpuscular Hemoglobin Concent 32.7 G/DL (32.0-36.0) Red Cell Distribution Width 13.1 % (11.6-14.8) Platelet Count 400 K/UL (150-450) Mean Platelet Volume 5.7 FL (6.5-10.1) L Neutrophils (%) (Auto) 69.6 % (45.0-75.0) Lymphocytes (%) (Auto) 21.9 % (20.0-45.0) Monocytes (%) (Auto) 7.3 % (1.0-10.0) Eosinophils (%) (Auto) 0.7 % (0.0-3.0) Basophils (%) (Auto) 0.5 % (0.0-2.0) Sodium Level 140 MMOL/L (136-145) Potassium Level 3.7 MMOL/L (3.5-5.1) Chloride Level 104 MMOL/L (98-107) Carbon Dioxide Level 28 MMOL/L (21-32) Anion Gap 8 mmol/L (5-15) Blood Urea Nitrogen 9 mg/dL (7-18) Creatinine 0.8 MG/DL (0.55-1.30) Estimat Glomerular Filtration Rate > 60 mL/min (>60) Glucose Level 84 MG/DL (74-106) Calcium Level 9.4 MG/DL (8.5-10.1) Total Bilirubin 1.7 MG/DL (0.2-1.0) H Direct Bilirubin 0.5 MG/DL (0.0-0.3) H Aspartate Amino Transf (AST/SGOT) 156 U/L (15-37) H Alanine Aminotransferase (ALT/SGPT) 246 U/L (12-78) H Alkaline Phosphatase 174 U/L (46-116) H Total Protein 7.4 G/DL (6.4-8.2) Albumin 3.3 G/DL (3.4-5.0) L Globulin 4.1 g/dL Albumin/Globulin Ratio 0.8 (1.0-2.7) L Triglycerides Level 67 MG/DL (30-150) Cholesterol Level 107 MG/DL (< 200) LDL Cholesterol 74 mg/dL (<100) HDL Cholesterol 27 MG/DL (40-60) L Cholesterol/HDL Ratio 4.0 (3.3-4.4) Amylase Level 1039 U/L (25-115) *H Lipase > 2000 U/L (73-393) H Assessment Additional Comments gallstone pancreatitis Plan Additional Comments requires lap jamar after ERCP Gurmeet Trinidad MD Oct 09, 2018 14:20
--- NOTE | 2018-10-09 14:44 | NUR ---
CASE MANAGEMENT: INITIAL REVIEW 23 YO M PRESENTED TO OUR ED FROM HOME CC: ABD PAIN PHMx: PANCREATITIS. SI:PANCREATITIS. T 97.9 HR 87 RR 14 B/P 104/53 SATS 97% ON RA WBC 14.3 GLU 114 AST 175 ALT 123 ALP 119 LIPASE >2000 AMYLASE 1039 IS: ZOFRAN IV X1 PEPCID IV X1 NS BOLUS X1 TORADOL IV X1 PATIENT ADMITTED TO MED/SURG 10/08/2018 @ 0943 DCP: PATIENT TO BE DISCHARGED TO HOME ONCE MEDICALLY CLEARED. PLAN OF CARE: MRI ABD
[2018-10-09 16:00] VITALS: BP 111/65
--- NOTE | 2018-10-09 19:27 | NUR ---
HAND-OFF: Report given to LD Petty.
[2018-10-09 20:00] VITALS: BP 98/58
--- NOTE | 2018-10-09 20:36 | NUR ---
NURSE NOTES: Pt received awake, alert, asking for pain medication will take vital signs first, bed in lowest position, call light within reach, able to make needs known. IV fluid running, no signs of distress at the moment.
--- NOTE | 2018-10-09 20:51 | NUR ---
NURSE NOTES: Gordon up the Dilaudid but pt Blood pressure 98/58. I took it again and it was 89/57. I explained that I can't give the medication because it can lower blood pressure, pt verbalized understanding.
[2018-10-10] VITALS: BP 95/60
--- NOTE | 2018-10-10 | NUR ---
NURSE NOTES: Pt blood pressure at 0000 95/60 and patient was asking for dilaudid pain medication. I explained that giving this medication could cause pt blood pressure to decrease and he verbalized understanding. I contacted Dr Sarabia(concrete mixing plant superintendent MD) and explained that pt blood pressure has been low the entire shift, she agreed not to give the medication and ordered Tylenol 650 mg q 4hr PRN for pain.
[2018-10-10] MEDS: LR 1000ml 1,000 ML IV SCH ×5 (01:01→23:59)
[2018-10-10 04:00] VITALS: BP 98/54
--- NOTE | 2018-10-10 07:37 | NUR ---
HAND-OFF: Report given to LD Blue.
[2018-10-10 07:49] LABS: BASOPHILS % (AUTO) 1.2 % (0.0-2.0); HEMATOCRIT 36.1 % (42.0-52.0); HEMOGLOBIN 11.9 G/DL (14.2-18.0); LYMPHOCYTES % (AUTO) 40.7 % (20.0-45.0); MEAN CORPUSCULAR VOLUME 89 FL (80-99); MONOCYTES % (AUTO) 8.9 % (1.0-10.0); NEUTROPHILS % (AUTO) 45.3 % (45.0-75.0); PLATELET COUNT 386 K/UL (150-450); RED BLOOD COUNT 4.05 M/UL (4.70-6.10); RED CELL DISTRIBUTION WIDTH 12.9 % (11.6-14.8); WHITE BLOOD COUNT 4.7 K/UL (4.8-10.8)
[2018-10-10 08:00] VITALS: BP 99/50
[2018-10-10 08:07] LABS: ALANINE AMINOTRANSFERASE 158 U/L (12-78); ALBUMIN/GLOBULIN RATIO 0.8 (1.0-2.7); ALKALINE PHOSPHATASE 140 U/L (46-116); AMYLASE 204 U/L (25-115); ANION GAP 6 mmol/L (5-15); ASPARTATE AMINO TRANSFERASE 58 U/L (15-37); BILIRUBIN,TOTAL 0.8 MG/DL (0.2-1.0); BLOOD UREA NITROGEN 3 mg/dL (7-18); CALCIUM 9.1 MG/DL (8.5-10.1); CARBON DIOXIDE 30 MMOL/L (21-32); CHLORIDE 106 MMOL/L (98-107); CREATININE 0.8 MG/DL (0.55-1.30); POTASSIUM 3.9 MMOL/L (3.5-5.1); SODIUM 142 MMOL/L (136-145)
--- NOTE | 2018-10-10 08:12 | General Progress Note ---
Assessment/Plan Assessment/Plan #Acute pancreatitis, suspected to be from gallstones - cont NPO, IV fluids, morphine and Zofran -appreciate GI recs - ercp mon, lap jamar after. npo after midnight. #Recent appendicitis s/p appendectomy -patient was to follow up with general surgery as outpatient today -consult Dr. Trinidad for post-op wound check VTE PPx heparin SC Full Code I spent 40 minutes on this patient's case, and 30 minutes were dedicated to counseling and/or care coordination. Discussed with patient/family, nursing staff, SW/CM, [] regarding clinical status, treatment course, and disposition planning. Time of note may not reflect time of encounter. Subjective Date patient seen: Oct 10, 2018 Allergies: Coded Allergies: No Known Allergies (Unverified , 09/23/18) Subjective f/u pancreatitis, abd pain, n/v still having abd pain nausea vomited overnight denies fevers/chills ROS: 14 point ROS reviewed and negative except per the above Objective Last 24 Hour Vital Signs Date Time Temp Pulse Resp B/P (MAP) Pulse Ox O2 Delivery O2 Flow Rate FiO2 10/10/18 04:00 97.9 58 18 98/54 (69) 97 10/10/18 00:00 97.4 72 18 95/60 (72) 100 10/09/18 21:00 Room Air 10/09/18 20:00 97.9 70 18 98/58 (71) 98 10/09/18 16:00 97.8 71 16 111/65 (80) 98 10/09/18 12:26 97.7 10/09/18 12:00 97.7 84 16 112/49 (70) 97 10/09/18 09:00 Room Air Intake and Output 10/09/18 10/10/18 19:00 07:00 Intake Total 1750 ml 2500 ml Balance 1750 ml 2500 ml Intake Oral 1600 ml 1000 ml IV Total 150 ml 1500 ml # Voids 4 2 Laboratory Tests 10/09/18 08:50: White Blood Count 5.9#, Red Blood Count 4.16L, Hemoglobin 12.1L, Hematocrit 37.1L, Mean Corpuscular Volume 89, Mean Corpuscular Hemoglobin 29.1, Mean Corpuscular Hemoglobin Concent 32.7, Red Cell Distribution Width 13.1, Platelet Count 400, Mean Platelet Volume 5.7L, Neutrophils (%) (Auto) 69.6, Lymphocytes ( %) (Auto) 21.9, Monocytes (%) (Auto) 7.3, Eosinophils (%) (Auto) 0.7, Basophils (%) (Auto) 0.5, Sodium Level 140, Potassium Level 3.7, Chloride Level 104, Carbon Dioxide Level 28, Anion Gap 8, Blood Urea Nitrogen 9, Creatinine 0.8, Estimat Glomerular Filtration Rate > 60, Glucose Level 84, Calcium Level 9.4, Total Bilirubin 1.7H, Direct Bilirubin 0.5H, Aspartate Amino Transf (AST/SGOT) 156H, Alanine Aminotransferase (ALT/SGPT) 246H, Alkaline Phosphatase 174H, Total Protein 7.4, Albumin 3.3L, Globulin 4.1, Albumin/Globulin Ratio 0.8L, Triglycerides Level 67, Cholesterol Level 107, LDL Cholesterol 74, HDL Cholesterol 27L, Cholesterol/HDL Ratio 4.0, Amylase Level 1039*H, Lipase > 2000H 10/10/18 06:50: White Blood Count 4.7L, Red Blood Count 4.05L, Hemoglobin 11.9L, Hematocrit 36.1L, Mean Corpuscular Volume 89, Mean Corpuscular Hemoglobin 29.5, Mean Corpuscular Hemoglobin Concent 33.1, Red Cell Distribution Width 12.9, Platelet Count 386, Mean Platelet Volume 6.0L, Neutrophils (%) (Auto) 45.3, Lymphocytes ( %) (Auto) 40.7, Monocytes (%) (Auto) 8.9, Eosinophils (%) (Auto) 4.0H, Basophils (%) (Auto) 1.2, Sodium Level [Pending], Potassium Level [Pending], Chloride Level [Pending], Carbon Dioxide Level [Pending], Blood Urea Nitrogen [ Pending], Creatinine [Pending], Estimat Glomerular Filtration Rate [Pending], Glucose Level [Pending], Calcium Level [Pending], Total Bilirubin [Pending], Aspartate Amino Transf (AST/SGOT) [Pending], Alanine Aminotransferase (ALT/SGPT ) [Pending], Alkaline Phosphatase [Pending], Total Protein [Pending], Albumin [ Pending], Globulin [Pending], Amylase Level [Pending], Lipase [Pending] Height (Feet): 5 Height (Inches): 9.00 Weight (Pounds): 185 Objective General Appearance: no apparent distress, alert HEENT: normocephalic, atraumatic, anicteric Neck: non-tender, normal alignment Respiratory/Chest: chest wall non-tender, lungs clear, normal breath sounds Cardiovascular/Chest: normal peripheral pulses, normal rate, regular rhythm Abdomen: soft, no organomegaly, no mass, other - Mild epigastric tenderness Extremities: normal range of motion, non-tender, normal inspection Skin Exam: normal pigmentation, warm/dry Neurologic: selling specialist II-XII grossly normal, no motor/sensory deficits, abnormal gait Serg Soares MD Oct 10, 2018 08:11
[2018-10-10] MEDS: Pantoprazole Inj IV SCH (09:21)
--- NOTE | 2018-10-10 10:08 | NUR ---
NURSE NOTES: pt in bed with no sob nor in any form of distress noted. Denies any abdomen pain at this time. IVF running with no adverse reaction noted. will continue to monitor
--- NOTE | 2018-10-10 11:05 | General Progress Note ---
Assessment/Plan Problem List: (1) Gallstone pancreatitis ICD Codes: K85.10 - Biliary acute pancreatitis without necrosis or infection SNOMED: [id number] Assessment/Plan plan ERCP on Thursday Subjective ROS Limited/Unobtainable: Yes Allergies: Coded Allergies: No Known Allergies (Unverified , 09/23/18) Objective Last 24 Hour Vital Signs Date Time Temp Pulse Resp B/P (MAP) Pulse Ox O2 Delivery O2 Flow Rate FiO2 10/10/18 09:45 Room Air 10/10/18 08:00 97.8 60 18 99/50 (66) 97 10/10/18 04:00 97.9 58 18 98/54 (69) 97 10/10/18 00:00 97.4 72 18 95/60 (72) 100 10/09/18 21:00 Room Air 10/09/18 20:00 97.9 70 18 98/58 (71) 98 10/09/18 16:00 97.8 71 16 111/65 (80) 98 10/09/18 12:26 97.7 10/09/18 12:00 97.7 84 16 112/49 (70) 97 Intake and Output 10/09/18 10/10/18 19:00 07:00 Intake Total 1750 ml 2650 ml Balance 1750 ml 2650 ml Intake Oral 1600 ml 1000 ml IV Total 150 ml 1650 ml # Voids 4 2 Laboratory Tests 10/10/18 06:50: White Blood Count 4.7L, Red Blood Count 4.05L, Hemoglobin 11.9L, Hematocrit 36.1L, Mean Corpuscular Volume 89, Mean Corpuscular Hemoglobin 29.5, Mean Corpuscular Hemoglobin Concent 33.1, Red Cell Distribution Width 12.9, Platelet Count 386, Mean Platelet Volume 6.0L, Neutrophils (%) (Auto) 45.3, Lymphocytes ( %) (Auto) 40.7, Monocytes (%) (Auto) 8.9, Eosinophils (%) (Auto) 4.0H, Basophils (%) (Auto) 1.2, Sodium Level 142, Potassium Level 3.9, Chloride Level 106, Carbon Dioxide Level 30, Anion Gap 6, Blood Urea Nitrogen 3L, Creatinine 0.8, Estimat Glomerular Filtration Rate > 60, Glucose Level 84, Calcium Level 9.1, Total Bilirubin 0.8, Aspartate Amino Transf (AST/SGOT) 58H, Alanine Aminotransferase (ALT/SGPT) 158H, Alkaline Phosphatase 140H, Total Protein 7.0, Albumin 3.0L, Globulin 4.0, Albumin/Globulin Ratio 0.8L, Amylase Level 204H, Lipase 681H Height (Feet): 5 Height (Inches): 9.00 Weight (Pounds): 185 General Appearance: alert EENT: normal ENT inspection Neck: supple Cardiovascular: normal rate Respiratory/Chest: decreased breath sounds Abdomen: normal bowel sounds, non tender, soft Extremities: non-tender Momo Ambrosio MD Oct 10, 2018 11:05
[2018-10-10 12:00] VITALS: BP 117/57
[2018-10-10 16:00] VITALS: BP 102/58
[2018-10-10] MEDS: HYDROmorphone 1mg/ml Carpuject IVP PRN ×2 (17:04→21:00)
--- NOTE | 2018-10-10 19:08 | NUR ---
HAND-OFF: Report given to LD Petty.
--- NOTE | 2018-10-10 19:43 | NUR ---
NURSE NOTES: Pt received awake, alert, no signs of pain or distress, able to make needs known, call light within reach, bed in lowest position, IV running, will continue to monitor.
[2018-10-10 20:00] VITALS: BP 118/65
[2018-10-11] VITALS (12 sets, daily range): BP systolic 102–138; BP diastolic 55–78
[2018-10-11] MEDS: LR 1000ml 1,000 ML IV SCH ×3 (00:11→11:50)
[2018-10-11] MEDS: HYDROmorphone 1mg/ml Carpuject IVP PRN ×4 (01:39→23:57)
--- NOTE | 2018-10-11 07:33 | NUR ---
HAND-OFF: Report given to LD Blue.
--- NOTE | 2018-10-11 07:39 | NUR ---
NURSE NOTES: pt in bed with no sob nor in any form of distress noted. kept NPO sine midnight. IVF running with no adverse reaction noted. family member at bedside. denies any pain at this time. will continue to monitor.
--- NOTE | 2018-10-11 08:56 | General Progress Note ---
Assessment/Plan Assessment/Plan #Acute gallstone pancreatitis -lipase levels improved -denies abdominal pain -continue symptomatic care -continue IV fluids -plan for ERCP today -monitor LFTs and lipase -discussed cholecystectomy with the patient #Recent appendicitis s/p appendectomy -seen by surgery VTE PPx heparin SC Full Code I spent 45 minutes on this patient's case, and 25 minutes was dedicated to counseling and/or care coordination. Subjective Date patient seen: Oct 11, 2018 Time patient seen: 07:45 Constitutional: Denies: chills, fever Cardiovascular: Denies: chest pain Respiratory: Denies: cough Gastrointestinal/Abdominal: Denies: abdomen distended, abdominal pain Genitourinary: Denies: burning Allergies: Coded Allergies: No Known Allergies (Unverified , 09/23/18) Subjective Medicine follow up for gallstone pancreatitis. Denies any abdominal pain, nausea or vomiting. Plan for ERCP today. Objective Last 24 Hour Vital Signs Date Time Temp Pulse Resp B/P (MAP) Pulse Ox O2 Delivery O2 Flow Rate FiO2 10/11/18 04:00 97.9 70 18 106/74 (85) 98 10/11/18 00:00 97.5 71 18 138/78 (98) 100 10/10/18 21:00 Room Air 10/10/18 20:00 97.3 71 18 118/65 (82) 98 10/10/18 17:34 98.1 10/10/18 16:00 98.1 89 18 102/58 (73) 98 10/10/18 12:00 98.2 72 18 117/57 (77) 99 10/10/18 09:45 Room Air Intake and Output 10/10/18 10/11/18 19:00 07:00 Intake Total 2700 ml 5150 ml Output Total 500 ml Balance 2700 ml 4650 ml Intake Oral 1200 ml 3500 ml IV Total 1500 ml 1650 ml Output Urine Total 500 ml # Voids 4 3 # Bowel Movements 1 Height (Feet): 5 Height (Inches): 9.00 Weight (Pounds): 185 General Appearance: no apparent distress Neck: non-tender, normal alignment, normal inspection Cardiovascular: normal peripheral pulses, normal rate, regular rhythm Respiratory/Chest: chest wall non-tender, lungs clear, normal breath sounds Abdomen: normal bowel sounds, non tender, soft, no organomegaly Neurologic: alert, oriented x 3 Molazadeh-Yazdi,Burton MD Oct 11, 2018 08:56
[2018-10-11] MEDS: Pantoprazole Inj IV SCH (09:26)
[2018-10-11] MEDS ORDERED: Iothalamate Meglumine 60% 30ML INJ ONE ×2 (11:46→13:15)
[2018-10-11] MEDS ORDERED: LR 1000ml 1,000 ML IVLG SCH (12:07)
--- NOTE | 2018-10-11 12:10 | Anethesia Preoperative Eval ---
Anesthesia Pre-op PMH/ROS General Date of Evaluation: Oct 11, 2018 Time of Evaluation: 13:04 Anesthesiologist: Solo ASA Score: ASA 2 Mallampati Score Class I : Soft palate, uvula, fauces, pillars visible Class II: Soft palate, uvula, fauces visible Class III: Soft palate, base of uvula visible Class IV: Only hard plate visible Mallampati Classification: Class I Surgeon: Hebert Diagnosis: Pancreatitis Surgical Procedure: ERCP Family History: no anesthesia problems Allergies: Coded Allergies: No Known Allergies (Unverified , 09/23/18) Medications: see eMAR Patient NPO?: Yes Past Medical History Gastrointestinal/Genitourinary: Reports: other - Pancreatitis Other: obesity - BMI 32 PSxH Narrative: Appendectomy Anesthesia Pre-op Phys. Exam Physician Exam Last Vital Signs Date Time Temp Pulse Resp B/P (MAP) Pulse Ox O2 Delivery O2 Flow Rate FiO2 10/11/18 09:46 Room Air 10/11/18 09:29 97.9 70 18 106/74 (85) 98 Constitutional: NAD Neurologic: CN 2-12 intact Cardiovascular: RRR Respiratory: CTA Gastrointestinal: S/NT/ND Airway Exam Mallampati Score: Class II MO: full ROM: full Teeth: intact Anesthesia Pre-op A/P Risk Assessment & Plan Assessment: ASA 2 Plan: GA Status Change Before Surgery: Omkar Jones MD Oct 11, 2018 12:10
[2018-10-11] MEDS ORDERED: LORazepam Inj 2mg/ml 1ml IV PRN (12:15)
[2018-10-11] MEDS ORDERED: HYDROcodone/Acetamin 7.5/325 tab ORAL PRN (12:15)
[2018-10-11] MEDS ORDERED: oxyCODONE HCL/Acetaminophen 5/325mg ORAL PRN (12:15)
[2018-10-11] MEDS ORDERED: DiphenhydrAMINE 50mg/ml Inj IVP PRN (12:15)
[2018-10-11] MEDS ORDERED: Metoclopramide 10mg/2ml Inj IVP PRN (12:15)
[2018-10-11] MEDS ORDERED: Hydromorphone 0.5mg/0.5ml inj IVP PRN (12:15)
[2018-10-11] MEDS ORDERED: Midazolam 2mg/2ml Inj IVP PRN (12:15)
[2018-10-11] MEDS ORDERED: Meperidine 50mg/ml Inj(FOR RIGORS ONLY) IVP PRN (12:15)
[2018-10-11] MEDS ORDERED: fentaNYL 100 mcg/2 mL IV PRN (12:15)
[2018-10-11] MEDS ORDERED: Atropine Sulfate 0.4mg/ml inj IVP PRN (12:15)
[2018-10-11] MEDS ORDERED: Ketorolac 30mg Inj IV PRN ×2 (12:15)
[2018-10-11] MEDS ORDERED: Norco 5mg/325mg tab ORAL PRN (12:15)
--- NOTE | 2018-10-11 12:15 | Immediate Post-Op Evaluation ---
Immediate Post-Op Evalulation Immediate Post-Op Evalulation Procedure: ERCP Date of Evaluation: Oct 11, 2018 Time of Evaluation: 13:54 IV Fluids: 200 NS Blood Products: 0 Estimated Blood Loss: 7 Urinary Output: 0 Blood Pressure Systolic: 111 Blood Pressure Diastolic: 67 Pulse Rate: 66 Respiratory Rate: 17 O2 Sat by Pulse Oximetry: 100 Temperature (Fahrenheit): 97.4 Pain Score (1-10): 2 Nausea: No Vomiting: No Complications 0 Patient Status: awake, reacts, patent, none Hydration Status: adequate Omkar Banda MD Oct 11, 2018 12:15
--- NOTE | 2018-10-11 12:16 | 48 Hour Post Anesthesia Eval ---
Post Anesthesia Evaluation Procedure: ERCP Date of Evaluation: Oct 11, 2018 Time of Evaluation: 15:56 Blood Pressure Systolic: 132 0: 73 Pulse Rate: 68 Respiratory Rate: 18 Temperature (Fahrenheit): 98.2 O2 Sat by Pulse Oximetry: 100 Airway: patent Nausea: No Vomiting: No Pain Intensity: 2 Hydration Status: adequate Cardiopulmonary Status: Stable Mental Status/LOC: patient returned to baseline Follow-up Care/Observations: 0 Post-Anesthesia Complications: 0 Follow-up care needed: N/A Omkar Banda MD Oct 11, 2018 12:16
--- NOTE | 2018-10-11 12:50 | Pre-Procedure Note/Attestation ---
Pre-Procedure Note/Attestation Complete Prior to Procedure Planned Procedure: not applicable Procedure Narrative: ercp Indications for Procedure Pre-Operative Diagnosis: choledocholithiasis Attestation I attest that I discussed the nature of the procedure; its benefits; risks and complications; and alternatives (and the risks and benefits of such alternatives ), prior to the procedure, with the patient (or the patient's legal enrollment representative). I attest that, if there was a reasonable possibility of needing a blood transfusion, the patient (or the patient's legal enrollment representative) was given the [facility] standardized written summary, pursuant to the Michele Rosendo Blood Safety Act ([place] Health and Safety Code # 1645, as amended). I attest that I re-evaluated the patient just prior to the surgery and that there has been no change in the patient's H&P, except as documented below: Momo Ambrosio MD Oct 11, 2018 12:50
[2018-10-11] MEDS ORDERED: Lidocaine 1% MPF 10mg/ml 5ml ONE (13:00)
[2018-10-11] MEDS ORDERED: Propofol 200mg/20ml IV ONE (13:00)
[2018-10-11] MEDS ORDERED: LR 1000ml ONE ×3 (13:00→20:26)
[2018-10-11] MEDS ORDERED: NS 500ML IVPB ONE (13:05)
--- NOTE | 2018-10-11 14:19 | Anethesia Preoperative Eval ---
Anesthesia Pre-op PMH/ROS General Date of Evaluation: Oct 11, 2018 Time of Evaluation: 14:15 Anesthesiologist: Jada ASA Score: ASA 2 Mallampati Score Class I : Soft palate, uvula, fauces, pillars visible Class II: Soft palate, uvula, fauces visible Class III: Soft palate, base of uvula visible Class IV: Only hard plate visible Mallampati Classification: Class I Surgeon: Vivi Diagnosis: Symptomatic cholelithiasis Surgical Procedure: Laparoscopic cholecystectomy Anesthesia History: none Family History: no anesthesia problems Allergies: Coded Allergies: No Known Allergies (Unverified , 09/23/18) Patient NPO?: Yes Past Medical History Cardiovascular: Denies: HTN, CAD, AL, valve dz, arrhythmia, other Pulmonary: Denies: asthma, COPD, MONAE, other Gastrointestinal/Genitourinary: Reports: GERD; Denies: CRI, ESRD, other Neurologic/Psychiatric: Denies: dementia, CVA, depression/anxiety, TIA, other Endocrine: Denies: DM, hypothyroidism, steroids, other HEENT: Denies: cataract (L), cataract (R), glaucoma, JAMUL (L), JAMUL (R), other Hematology/Immune: Denies: anemia, DVT, bleeding disorder, other Musculoskeletal/Integumentary: Denies: OA, RA, DJD, DDD, edema, other PMH Narrative: admitted for recurrent abdominal pain. Symptomatic gallbladder stones PSxH Narrative: Laparoscopic appendectomy Anesthesia Pre-op Phys. Exam Physician Exam Last Vital Signs Date Time Temp Pulse Resp B/P (MAP) Pulse Ox O2 Delivery O2 Flow Rate FiO2 10/11/18 14:05 56 21 104/62 100 Simple Mask 6 10/11/18 13:43 97.4 Constitutional: NAD Neurologic: CN 2-12 intact Cardiovascular: RRR, no M/R/G Respiratory: CTA Gastrointestinal: S/NT/ND Airway Exam Mallampati Score: Class II MO: full Neck: flexible Teeth: missing Dentures: no upper, no lower Anesthesia Pre-op A/P Labs see chart Studies Pre-op Studies: EKG - NSR Risk Assessment & Plan Assessment: ASA2 Plan: GA with ETT Status Change Before Surgery: No Pre-Antibiotics Drug: as scheduled Jimmy Elias MD Oct 11, 2018 14:19
--- NOTE | 2018-10-11 14:30 | Endoscopy Procedure Note ---
Endoscopy Procedure Note General Indication for Procedure: gallstones pancreatitis Procedures Performed: ERCP Operative Findings/Diagnosis: same Specimen: none Pt Tolerated Procedure Well: Yes Estimated Blood Loss: none Anesthesia Anesthesiologist: liam Anesthesia: MAC Inserted Devices Implant(s) used?: No GI Core Measures 50 yrs or older w/o bx or poly: Not Applicable 10yrs. F/U not recommended: Not Applicable Momo Ambrosio MD Oct 11, 2018 14:30
--- NOTE | 2018-10-11 15:05 | General Surgery Progress Note ---
General Surgery-Progress Note Subjective Symptoms: improved, BM Objective Last 24 Hour Vital Signs Date Time Temp Pulse Resp B/P (MAP) Pulse Ox O2 Delivery O2 Flow Rate FiO2 10/11/18 14:16 97.8 55 20 115/59 100 Nasal Cannula 3 10/11/18 14:05 56 21 104/62 100 Simple Mask 6 10/11/18 13:53 58 21 107/55 100 Simple Mask 6 10/11/18 13:48 60 15 106/57 100 Simple Mask 6 10/11/18 13:43 97.4 68 17 111/67 100 Simple Mask 6 10/11/18 13:41 68 18 100 10/11/18 13:40 66 17 100 10/11/18 12:00 98.0 68 18 102/69 (80) 98 10/11/18 09:46 Room Air 10/11/18 09:29 97.9 70 18 106/74 (85) 98 10/11/18 08:00 97.2 63 19 113/56 (75) 98 10/11/18 04:00 97.9 70 18 106/74 (85) 98 10/11/18 00:00 97.5 71 18 138/78 (98) 100 10/10/18 21:00 Room Air 10/10/18 20:00 97.3 71 18 118/65 (82) 98 10/10/18 17:34 98.1 10/10/18 16:00 98.1 89 18 102/58 (73) 98 I&O Intake and Output 10/10/18 10/11/18 19:00 07:00 Intake Total 2700 ml 5150 ml Output Total 500 ml Balance 2700 ml 4650 ml Intake Oral 1200 ml 3500 ml IV Total 1500 ml 1650 ml Output Urine Total 500 ml # Voids 4 3 # Bowel Movements 1 Respiratory: clear Abdomen: soft, flat, non-tender, present bowel sounds Extremities: no tenderness Assessment Additional Comments gall stone pancreatitis Plan Additional Comments he underwent ERCP and reportedly 2 stones have been removed from CBD. Now he requires Lap Anayeli but he refuses although I informed him about consequences. I have scheduled him for tomorrow but if he refused surgery he can be discharged to follow up with [facility] [place]. Gurmeet Trinidad MD Oct 11, 2018 15:05
--- NOTE | 2018-10-11 17:18 | Diagnostic Imaging Report ---
Indication: Abdominal pain. ERCP. Findings: Fluoroscopically captured images of the right upper quadrant of the abdomen demonstrate an endoscope with cannulation of the common bile duct and injection of contrast material. Total fluoroscopic time 105 seconds. Endoscope and cannulation of the CBD noted. Extraction balloon deployment noted on multiple passes. CBD is dilated. Impression: ERCP as above
--- NOTE | 2018-10-11 19:19 | NUR ---
HAND-OFF: Report given to LD Onofre.
--- NOTE | 2018-10-11 19:19 | NUR ---
NURSE NOTES: Informed pt that he has order for cholecystectomy for tomorrow per Dr. Gage. Per Dr. Gage, if pt refuse the sx then its fine with him and he's ready to go home. Pt refused to have sx tomorrow.
--- NOTE | 2018-10-11 19:30 | Procedure Note ---
DATE OF PROCEDURE: 10/11/2018 SURGEON: Momo Ambrosio M.D. REFERRING PHYSICIAN: Renata Mendez M.D. PROCEDURE: ERCP with sphincterotomy and stone removal. ANESTHESIA: Per Dr. Banda. INSTRUMENT: Olympus adult flexible ERCP scope. INDICATION: Gallstone pancreatitis. REASON FOR PROCEDURE: The procedure, risks, benefits, and possible consequences, including hemorrhage, aspiration, perforation and infection, and alternative treatments, were explained to the patient/legal guardian by Dr. Momo Ambrosio and the patient/legal guardian understood and accepted these risks. PROCEDURE IN DETAIL: After informed consent was obtained and the patient was adequately sedated, Olympus ERCP scope was advanced from mouth into the second portion of the duodenum. The patient had a stone stuck at the ampulla causing impaction. Using a sphincterotome, first we removed the stone and then cannulated common bile duct selectively. Initial cholangiogram showed dilated common bile duct to at least about 10 mm. There was some filling defect in the distal common bile duct, most probably small stones. Then over a guidewire, 95% sphincterotomy was performed. Then, a balloon was used to sweep the duct multiple times to remove at least another stone small one from distal common bile duct. After the balloon sweep and stone removal, repeat balloon occlusion cholangiogram showed no further filling defect in the common bile duct. The flow of contrast was good from common bile duct into the duodenum, so no stent was placed. Meanwhile, we could not the cystic duct in this procedure. SUMMARY OF FINDINGS: Impacted common bile duct stone status post endoscopic retrograde cholangiopancreatography and sphincterotomy with stone removal. RECOMMENDATIONS: 1. Start clear diet and advance as tolerated. 2. Follow labs. 3. The patient most probably will need a cholecystectomy. Follow with surgical recommendations. I want to thank, Dr. Mendez, for this kind referral. Momo Ambrosio M.D. DR: RAY JOB#: [id number] CC:
--- NOTE | 2018-10-11 20:24 | NUR ---
NURSE NOTES: Patient in bed, AOx4. IV in place, patent. Mother at bedside. Had complaints of pain 03/02, Dilaudid prn was given as ordered. No s/s distress noted. Patient still refused lap cholecystectomy procedure tomorrow. Called and spoke with Dr. Vivi MD aware. Charge nurse aware. Per , okay to put patient back on regular diet. Bed in lowest position, call light within reach. Will continue to monitor.
[2018-10-12] VITALS: BP 128/69
[2018-10-12 04:30] VITALS: BP 99/60
--- NOTE | 2018-10-12 04:45 | NUR ---
NURSE NOTES: Patient asleep, no distress, v/s stable.
--- NOTE | 2018-10-12 07:00 | NUR ---
HAND-OFF: Report given to shahbaz walton rn.
[2018-10-12 07:04] LABS: EOSINOPHILS % (AUTO) 4.4 % (0.0-3.0); HEMATOCRIT 36.6 % (42.0-52.0); HEMOGLOBIN 12.1 G/DL (14.2-18.0); LYMPHOCYTES % (AUTO) 42.6 % (20.0-45.0); MEAN CORPUSCULAR VOLUME 88 FL (80-99); MONOCYTES % (AUTO) 8.2 % (1.0-10.0); NEUTROPHILS % (AUTO) 43.8 % (45.0-75.0); PLATELET COUNT 376 K/UL (150-450); RED BLOOD COUNT 4.15 M/UL (4.70-6.10); RED CELL DISTRIBUTION WIDTH 12.8 % (11.6-14.8); WHITE BLOOD COUNT 4.3 K/UL (4.8-10.8)
[2018-10-12 07:13] LABS: ALANINE AMINOTRANSFERASE 176 U/L (12-78); ALBUMIN 3.3 G/DL (3.4-5.0); ALBUMIN/GLOBULIN RATIO 0.8 (1.0-2.7); ALKALINE PHOSPHATASE 198 U/L (46-116); ANION GAP 7 mmol/L (5-15); ASPARTATE AMINO TRANSFERASE 87 U/L (15-37); BILIRUBIN,TOTAL 0.7 MG/DL (0.2-1.0); BLOOD UREA NITROGEN 3 mg/dL (7-18); CALCIUM 8.9 MG/DL (8.5-10.1); CARBON DIOXIDE 30 MMOL/L (21-32); CHLORIDE 103 MMOL/L (98-107); CREATININE 0.8 MG/DL (0.55-1.30); SODIUM 140 MMOL/L (136-145)
--- NOTE | 2018-10-12 07:33 | NUR ---
NURSE NOTES: PT AXOX4, CALM, RESTING IN BED. STATES PAIN 7/10 OF ABDOMEN. RN EDUCATED PT ON PRN SCHEDULE OF DILAUDID AND NEED TO CHECK BP AND PULSE. PT VERBALIZED UNDERSTANDING. IN NO APPARENT DISTRESS AT THIS TIME. PT STATES HE HAD NOT HAD A RECENT BM. LAST ONE WAS A FEW DAYS AGO. CALL LIGHT WITHIN REACH. WILL CONTINUE TO MONITOR.
[2018-10-12 08:00] VITALS: BP 104/59
[2018-10-12] MEDS: Pantoprazole Inj IV SCH (08:08)
[2018-10-12] MEDS: HYDROmorphone 1mg/ml Carpuject IVP PRN (08:09)
--- NOTE | 2018-10-12 09:43 | Discharge Summary ---
Discharge Summary Hospital Course Date of Admission Oct 08, 2018 at 09:43 Date of Discharge 10/12 Admitting Diagnosis pancreatitis HPI Ketan Osuna is a 23 year old male who was admitted on Oct 08, 2018 at 09:43 for Pancreatitis Consultations GI Surgery Hospital Course #Acute gallstone pancreatitis s/p ERCP with removal of 2 stones -pain resolved and LFTs improved -seen by Surgery, he refused cholecystectomr -will follow up as outpatient Discharge Discharge Disposition Patient was discharged to Burton Gannon MD Oct 12, 2018 09:43
--- NOTE | 2018-10-12 09:57 | NUR ---
NURSE NOTES: DR MCCRAY AT BEDSIDE AND MADE AWARE PT REFUSING LAP PEDRO PABLO AND TOLERATING REGULAR DIET. PT HAS NO NAUSEA OR VOMITING. PT REQUESTS FOR DR'S NOTE AND PAIN PRESCRIPTION. DR MCCRAY WITH ORDER FOR DISCHARGE. NO PAIN PRESCRIPTION DUE TO TRAMADOL AT HOME. BELONGINGS CHECKED AT BEDSIDE AND ALL ACCOUNTED. IV ACCESS DISCONTINUED. PT STATES HE HAS A RIDE TO PICK HIM UP.
--- NOTE | 2018-10-12 13:27 | GI Progress Note ---
Assessment/Plan Problems: (1) Gallstone pancreatitis ICD Codes: K85.10 - Biliary acute pancreatitis without necrosis or infection SNOMED: 44070748 (2) Acute pancreatitis ICD Codes: K85.90 - Acute pancreatitis without necrosis or infection, unspecified SNOMED: 917776044 Qualifiers: Qualified Codes: K85.90 - Acute pancreatitis without necrosis or infection, unspecified (3) Abdominal pain ICD Codes: R10.9 - Unspecified abdominal pain SNOMED: 77776596 Status: stable Status Narrative Discussed with Dr. Ambrosio Assessment/Plan SUMMARY OF FINDINGS: Impacted common bile duct stone status post endoscopic retrograde cholangiopancreatography and sphincterotomy with stone removal. Patient refused surgery, diet advanced RECOMMENDATIONS: Recommended cholecystectomy however patient refused okay for DC per GI standpoint The patient was seen and examined at bedside and all new and available data was reviewed in the patients chart. I agree with the above findings, impression and plan. (Patient seen earlier today. Signature stamp does not reflect patient encounter time.). - Momo Ambrosio MD Subjective Subjective Denies any abdominal pain Tolerating regular diet Objective Last 24 Hour Vital Signs Date Time Temp Pulse Resp B/P (MAP) Pulse Ox O2 Delivery O2 Flow Rate FiO2 10/12/18 09:00 Room Air 10/12/18 08:00 97.9 68 19 104/59 (74) 97 10/12/18 04:30 97.6 64 18 99/60 (73) 98 10/12/18 00:27 97.4 10/12/18 00:00 97.4 80 18 128/69 (88) 98 10/11/18 20:05 Room Air 10/11/18 20:00 97.3 86 18 103/65 (78) 98 10/11/18 16:00 97.8 70 18 112/70 (84) 98 10/11/18 14:16 97.8 55 20 115/59 100 Nasal Cannula 3 10/11/18 14:05 56 21 104/62 100 Simple Mask 6 10/11/18 13:53 58 21 107/55 100 Simple Mask 6 10/11/18 13:48 60 15 106/57 100 Simple Mask 6 10/11/18 13:43 97.4 68 17 111/67 100 Simple Mask 6 10/11/18 13:41 68 18 100 10/11/18 13:40 66 17 100 Intake and Output 10/11/18 10/12/18 19:00 07:00 Intake Total 1000 ml Balance 1000 ml IV Total 1000 ml # Voids 2 Laboratory Tests Test 10/12/18 05:30 White Blood Count 4.3 K/UL (4.8-10.8) L Red Blood Count 4.15 M/UL (4.70-6.10) L Hemoglobin 12.1 G/DL (14.2-18.0) L Hematocrit 36.6 % (42.0-52.0) L Mean Corpuscular Volume 88 FL (80-99) Mean Corpuscular Hemoglobin 29.2 PG (27.0-31.0) Mean Corpuscular Hemoglobin Concent 33.1 G/DL (32.0-36.0) Red Cell Distribution Width 12.8 % (11.6-14.8) Platelet Count 376 K/UL (150-450) Mean Platelet Volume 6.0 FL (6.5-10.1) L Neutrophils (%) (Auto) 43.8 % (45.0-75.0) L Lymphocytes (%) (Auto) 42.6 % (20.0-45.0) Monocytes (%) (Auto) 8.2 % (1.0-10.0) Eosinophils (%) (Auto) 4.4 % (0.0-3.0) H Basophils (%) (Auto) 1.0 % (0.0-2.0) Sodium Level 140 MMOL/L (136-145) Potassium Level 4.0 MMOL/L (3.5-5.1) Chloride Level 103 MMOL/L (98-107) Carbon Dioxide Level 30 MMOL/L (21-32) Anion Gap 7 mmol/L (5-15) Blood Urea Nitrogen 3 mg/dL (7-18) L Creatinine 0.8 MG/DL (0.55-1.30) Estimat Glomerular Filtration Rate > 60 mL/min (>60) Glucose Level 79 MG/DL (74-106) Calcium Level 8.9 MG/DL (8.5-10.1) Total Bilirubin 0.7 MG/DL (0.2-1.0) Aspartate Amino Transf (AST/SGOT) 87 U/L (15-37) H Alanine Aminotransferase (ALT/SGPT) 176 U/L (12-78) H Alkaline Phosphatase 198 U/L (46-116) H Total Protein 7.4 G/DL (6.4-8.2) Albumin 3.3 G/DL (3.4-5.0) L Globulin 4.1 g/dL Albumin/Globulin Ratio 0.8 (1.0-2.7) L Lipase 348 U/L (73-393) Height (Feet): 5 Height (Inches): 5.00 Weight (Pounds): 185 General Appearance: WD/WN, no apparent distress, alert Cardiovascular: normal rate Respiratory/Chest: normal breath sounds, no respiratory distress Abdominal Exam: normal bowel sounds, non tender, soft Extremities: normal range of motion, non-tender Franklin Siu NP Oct 12, 2018 13:27
== END 2018-10-12 10:32 | disposition home or self-care (01) ==
LOC: EMR 07:40 → 4E 09:43 → EDBEDREQ 10:15 → 4E 10-09 15:12
PROC: 0FCC8ZZ Extirpation of Matter from Ampulla of Vater, Via Natural or Artificial Opening Endoscopic (ICD-10-PCS; principal; 2018-10-11 13:14)
PROC: 0F798ZZ Dilation of Common Bile Duct, Via Natural or Artificial Opening Endoscopic (ICD-10-PCS; 2018-10-11 13:14)
DX: K80.81 Other cholelithiasis with obstruction (principal); K85.10 Biliary acute pancreatitis without necrosis or infection
CPT/HCPCS: 36415; 74177; 74181; 74328; 76000; 76700; 80053; 80061; 82150; 82248; 83690; 85025; 94003; 94150; 96361; 96374; 96375; 99285; J2405